=== PATIENT | female | born 1950 | race Two or more races ===

== ENCOUNTER 2018-03-24 01:50 | Emergency (ER) | payer OTHER ==
[~2018-03-24] VITALS: Ht 144.8 cm; Wt 95.3 kg
[~2018-03-24 01:50] MED LIST: ALPR0.5T; BENA10TA9; CITA-36; ESOM40CA39; IBUP100C2
[2018-03-24 02:39] LABS: Basophils # (auto) 0 uL; Eosinophils # (auto) 0.1 uL; Lymphocytes # (auto) 2.2 uL; Monocytes # (auto) 0.6 uL
[2018-03-24 02:41] LABS: Basophils % (auto) 0.6 % (0.0-2.0); Eosinophils % (auto) 1.6 % (0.0-7.0); Hematocrit 34.9 % (36.0-46.0); Hemoglobin 11.2 g/dL (12.2-16.2); Lymphocytes % (auto) 32.4 % (10.0-50.0); Mean Corpuscular Hemoglobin 25.1 pg (28.0-32.0); Mean Corpuscular Hgb Conc. 32.1 g/dL (32.0-36.0); Mean Corpuscular Volume 78.3 fL (80.0-100.0); Neutrophils # (auto) 3.8 uL; Neutrophils % (auto) 56.4 % (37.0-80.0); Platelet Count (auto) 261 10^3/uL (140-450); Red Blood Cells 4.46 10^6/uL (4.0-5.20); Red Cell Distribution Width 14.4 % (11.8-14.3); White Blood Cell 6.8 10^3/uL (4.4-10.8)
[2018-03-24 02:53] LABS: Partial Thromboplastin Time 27.5 sec (23.78-33.04); Prothrombin Time 10.7 sec (9.27-12.13)
[2018-03-24 02:58] LABS: Alanine Aminotransferase 19 U/L (13-56); Albumin 3.3 g/dL (3.4-5.0); Amylase 24 U/L (25-115); Anion Gap 9 (5-15); Aspartate Aminotransferase 14 U/L (15-37); BUN/Creatinine Ratio 12.9; Blood Urea Nitrogen 9 mg/dL (7-18); Calcium 8.3 mg/dL (8.5-10.1); Carbon Dioxide 26 mmol/L (21-32); Chloride 101 mmol/L (98-107); GFR African American 107 mL/min; GFR Non-African American 89 mL/min; Glucose 127 mg/dL (74-106); Lipase 74 U/L (73-393); Potassium 4.1 mmol/L (3.5-5.1); Sodium 136 mmol/L (136-145)
[2018-03-24 03:03] LABS: Alkaline Phosphatase 75 U/L (45-117); Bilirubin, Total 0.5 mg/dL (0.2-1.0); Total Protein 6.8 g/dL (6.4-8.2)
[2018-03-24] MEDS ORDERED: ONDANSETRON HCL 4 MG/2 ML VIAL ONE (03:47)
[2018-03-24 03:54] LABS: Urine Bacteria FEW /hpf (None Seen); Urine Blood Negative /uL (Negative); Urine Specific Gravity 1.004 (1.001-1.035); Urine WBC 30 /hpf (0 - 5)
[2018-03-24] MEDS ORDERED: ONDANSETRON HCL 4 MG/2 ML VIAL IV ONE (04:00)
[2018-03-24] MEDS ORDERED: CIPROFLOXACIN 400MG/200ML 200 ML IV ONE (04:30)
[2018-03-24] MEDS ORDERED: KETOROLAC TROMETH 30 MG/ML 1ML VIAL IV ONE (04:45)
[2018-03-24] MEDS ORDERED: PANTOPRAZOLE 40 MG/10 ML VIAL IV ONE (04:45)
[2018-03-24] MEDS ORDERED: cefTRIAXone 1GM/10ml IVPUSH 10 ML IV ONE (04:45)
[2018-03-24] MEDS ORDERED: IOHEXOL 300 MG/ML 100ML BOTTLE IJ ONE (04:57)
[2018-03-24 05:57] VITALS: BP 134/66
== END 2018-03-24 05:59 | disposition home or self-care (01) ==
LOC: EDBD 01:50 → ER 01:56
DX: N39.0 Urinary tract infection, site not specified (principal); J44.9 Chronic obstructive pulmonary disease, unspecified; E11.9 Type 2 diabetes mellitus without complications; Z79.899 Other long term (current) drug therapy
CPT/HCPCS: 36415; 74177; 80053; 81001; 82150; 83690; 84484; 85025; 85610; 85730; 93005; 96374; 96375; 99285; C9113; J0696; J1885; J2405; Q9967

== ENCOUNTER 2018-09-29 03:46 | Inpatient (IN) | payer OTHER ==
--- NOTE | 2018-09-28 23:55 | NUR ---
REPORT RECEIVED FROM WILBERT WHITE AT [facility]. AWAITING TRANSFER OF PATIENT. PER WILBERT ETA IS 1-2 HOURS.
[~2018-09-29] VITALS: Ht 144.8 cm; Wt 100.0 kg
--- NOTE | 2018-09-29 04:00 | NUR ---
Direct Admit Note MARYMINNIE admitted to Telemetry/MS unit as a direct admit from [facility]. Patient oriented to Chandrika Cisneros, primary RN, unit, room, bed, and unit policies regarding patient care and visiting hours. Patient weighed by bed scale and encouraged to call if they need something. All questions and concerns addressed, patient verbalized understanding. Will page MD to notify of patients arrival and await admit orders.
[2018-09-29 04:15] VITALS: BP 134/71
--- NOTE | 2018-09-29 04:15 | NUR ---
PAGED TO MD [place] FOR ADMISSION ORDERS.
--- NOTE | 2018-09-29 06:00 | NUR ---
PAGE #2 FOR ADMISSION ORDERS. CALL BACK NUMBER PROVIDED TO ANSWERING SERVICE.
--- NOTE | 2018-09-29 06:20 | NUR ---
IV insertion IV access obtained, via clean sterile technique by inserting 22 gauge catheter at Right FA after 1 attempt. IV secured properly. No trauma to site. Patient tolerated well.
--- NOTE | 2018-09-29 06:56 | NUR ---
PAGE #3 FOR ADMISSION ORDERS. CALL BACK NUMBER PROVIDED TO 'S ANSWERING SERVICE [phone] ext [phone].
--- NOTE | 2018-09-29 07:07 | NUR ---
CALL FROM [facility], INFORMED THAT I MUST CALL DR. AMADOR FOR ADMISSION ORDERS. PATIENT IS A DIRECT ADMIT OF DR. TURPIN, DR. AMADOR CORE SUCKER FOR AFTER 0700.
--- NOTE | 2018-09-29 07:10 | NUR ---
CALL TO [facility] ANSWERING SERVICE FOR REGARDING ADMISSION ORDERS. CAGE MAKER INFORMED ME THAT DOCTOR REQUESTS I CALL BACK IN 10 MINUTES.
--- NOTE | 2018-09-29 07:30 | NUR ---
Opening Shift Note REceived report from Chandrika WHITE. Assumed care of patient, awake and alert. No S/S of distress/SOB or pain. Emphasized NPO for LHC today and patient is aware of it. No orders yet, Chandrika WHITE will put in all the orders from dr. Silvestre. Instructed on POC and to call for assist PRN, will continue to monitor for changes Q1hr and PRN.
--- NOTE | 2018-09-29 07:30 | NUR ---
SPOKE TO REGARDING ADMISSION ORDERS, NEW ORDERS RECEIVED. READ BACK AND VERIFIED.
[2018-09-29 08:00] VITALS: BP 126/69
[2018-09-29] MEDS ORDERED: ONDANSETRON HCL 4 MG/2 ML VIAL IV PRN (08:15)
[2018-09-29] MEDS ORDERED: NITROGLYCERIN 0.4 MG SL TAB SL PRN (08:15)
[2018-09-29] MEDS ORDERED: HYDROcodone-ACET 5/325MG TAB PO PRN (08:15)
[2018-09-29 08:45] LABS: Basophils # (auto) 0 uL; Basophils % (auto) 0.4 % (0.0-2.0); Eosinophils # (auto) 0.1 uL; Hemoglobin 10.5 g/dL (12.2-16.2); Lymphocytes # (auto) 1.5 uL; Mean Corpuscular Volume 78.7 fL (80.0-100.0); Monocytes % (auto) 8.4 % (0.0-12.0); Neutrophils # (auto) 6.6 uL; Neutrophils % (auto) 73.6 % (37.0-80.0); White Blood Cell 8.9 10^3/uL (4.4-10.8)
[2018-09-29 08:47] LABS: Eosinophils % (auto) 0.8 % (0.0-7.0); Hematocrit 32.4 % (36.0-46.0); Lymphocytes % (auto) 16.8 % (10.0-50.0); Mean Corpuscular Hemoglobin 25.6 pg (28.0-32.0); Mean Corpuscular Hgb Conc. 32.5 g/dL (32.0-36.0); Monocytes # (auto) 0.7 uL; Nucleated Red Blood Cells % 0.1 %; Platelet Count (auto) 260 10^3/uL (140-450); Red Blood Cells 4.11 10^6/uL (4.0-5.20); Red Cell Distribution Width 15.1 % (11.8-14.3)
[2018-09-29] MEDS: cefTRIAXone 1GM/50ML D5W 50 ML IV SCH (08:54)
--- NOTE | 2018-09-29 09:00 | NUR ---
PATIENT SIGNED CONSENTS. CHG WIPES DONE.
[2018-09-29 09:02] LABS: Albumin 3.4 g/dL (3.4-5.0); Anion Gap 5 (5-15); Blood Urea Nitrogen 6 mg/dL (7-18); Calcium 8.6 mg/dL (8.5-10.1); Carbon Dioxide 28 mmol/L (21-32); Chloride 106 mmol/L (98-107); Glucose 143 mg/dL (74-106); Potassium 4.4 mmol/L (3.5-5.1); Sodium 139 mmol/L (136-145); Triglycerides 120 mg/dL (< 150)
[2018-09-29] MEDS: CLOPIDOGREL BISULFATE 75 MG TAB PO SCH (09:03)
[2018-09-29] MEDS: ASPirin 325 MG TAB PO SCH (09:03)
[2018-09-29] MEDS: GABAPENTIN 300 MG CAP PO SCH ×2 (09:03→22:32)
[2018-09-29] MEDS: CITALOPRAM HYDROBR 20 MG TAB PO SCH (09:04)
[2018-09-29] MEDS: FAMOTIDINE 20 MG TAB PO SCH (09:04)
--- NOTE | 2018-09-29 09:05 | NUR ---
HINDU PATIENT SIGNED REFUSAL FORM TO FOR BLOOD TRANSFUSION. EXPLAINED RISKS AND BENEFITS. WILL CONTINUE CARE.
[2018-09-29 09:07] LABS: Alanine Aminotransferase 16 U/L (13-56); Alkaline Phosphatase 77 U/L (45-117); Aspartate Aminotransferase 15 U/L (15-37); BUN/Creatinine Ratio 9.5; Bilirubin, Total 0.3 mg/dL (0.2-1.0); Cholesterol 132 mg/dL (< 200); GFR African American 121 mL/min; GFR Non-African American 100 mL/min; HDL Cholesterol 67 mg/dL (40-59); LDL Cholesterol 48 mg/dL (< 100); Total Protein 7.1 g/dL (6.4-8.2)
[2018-09-29 09:20] VITALS: BP 126/69
--- NOTE | 2018-09-29 09:35 | NUR ---
Dr. Silvestre at bedside.
[2018-09-29] MEDS ORDERED: DEXTROSE (50%) 50ML SYRG IV PRN (10:00)
[2018-09-29 10:07] LABS: Cholesterol 126 mg/dL (< 200); Triglycerides 123 mg/dL (< 150)
[2018-09-29 10:09] LABS: HDL Cholesterol 67 mg/dL (40-59); LDL Cholesterol 48 mg/dL (< 100)
--- NOTE | 2018-09-29 10:27 | NUR ---
OBTAINED URINE SAMPLE, SENT TO LAB.
[2018-09-29 11:03] LABS: Urine Bacteria NONE SEEN /hpf (None Seen); Urine Blood Negative /uL (Negative); Urine Mucus FEW (None Seen); Urine Specific Gravity 1.013 (1.001-1.035); Urine WBC 1 /hpf (0 - 5)
[2018-09-29] MEDS ORDERED: ALPR-229 PO (11:36)
[2018-09-29] MEDS ORDERED: ESCI20TA PO (11:36)
[2018-09-29] MEDS ORDERED: PANT1INJ3 PO (11:36)
[2018-09-29] MEDS ORDERED: ESCI20TA51 PO (11:36)
[2018-09-29] MEDS ORDERED: SIMV-13 PO (11:36)
[2018-09-29] MEDS ORDERED: BENZ1TAB2 PO (11:36)
[2018-09-29] MEDS ORDERED: RANI1TAB6 PO (11:36)
[2018-09-29] MEDS ORDERED: ZIPR80CA8 PO (11:36)
[2018-09-29] MEDS ORDERED: GABA300C10 PO (11:36)
[2018-09-29] MEDS ORDERED: INSU100I4 SC (11:36)
[2018-09-29] MEDS ORDERED: METF-370 PO (11:36)
[2018-09-29] MEDS ORDERED: HYDR-4798 PO (11:36)
[2018-09-29] MEDS ORDERED: DONE10TA40 PO (11:36)
[2018-09-29] MEDS ORDERED: CLOT1CRE13 TOP (11:36)
[2018-09-29] MEDS ORDERED: DIPH25CA6 PO (11:36)
[2018-09-29] MEDS ORDERED: PROP60CA34 PO (11:36)
[2018-09-29] MEDS: ACCU-CHEK COMFORT CURVE STRIP VI SCH ×2 (11:51→17:18)
[2018-09-29] MEDS: InsuLIN REG 1unit/0.01ml Soln (100units/ml) SC SCH ×2 (11:52→17:18)
[2018-09-29 12:05] LABS: INR 0.99 (0.9-1.15); Partial Thromboplastin Time 25.8 sec (23.78-33.04); Prothrombin Time 10.6 sec (9.27-12.13)
--- NOTE | 2018-09-29 12:58 | NUR ---
ASSISTED PATIENT BY BED TO [employer] BY EVERTON WHITE.
[2018-09-29 13:00] VITALS: BP 150/52
[2018-09-29] MEDS ORDERED: LIDOCAINE 2%HCL (LOCAL ANESTH.) INJ 20ML MDV ONE (13:16)
[2018-09-29] MEDS ORDERED: IOHEXOL 350 MG/ML 100ML IJ ONE (13:16)
[2018-09-29] MEDS ORDERED: ANGIOMAX 250 MG VIAL IV ONE (13:23)
[2018-09-29] MEDS ORDERED: SODIUM CHL 0.9% 0 ML ONE (13:23)
[2018-09-29] MEDS ORDERED: fentaNYL CITRATE 100 MCG/2 ML VL ONE (13:23)
[2018-09-29] MEDS ORDERED: MIDAZOLAM HCL 1MG/1ML-2 ML VIAL ONE (13:23)
[2018-09-29] MEDS: BENZTROPINE MESY 0.5 MG TAB PO SCH ×2 (13:30→22:32)
--- NOTE | 2018-09-29 14:45 | NUR ---
PATIENT IS BACK TO ROOM, NOTED RIGHT GROIN DRY & INTACT DRESSING. INSTRUCTED TO BE FLAT ON BED UNTIL 1600. PATIENT VERBALIZED UNDERSTANDING. WILL CONTINUE CARE.
[2018-09-29 17:16] VITALS: BP 137/56
--- NOTE | 2018-09-29 20:10 | NUR ---
OPENING NOTE PATIENT IS AWAKE AND ALERT X4, AMBULATING INDEPENDENTLY. DRESSING TO RIGHT GROIN IS C/D/I. NO S/S OF BLEEDING OR HEMATOMA FORMATION NOTED AT SITE. PULSES INTACT TO BILATERAL LOWER EXTREMITIES. PATIENT DENIES PAIN AT SITE.
[2018-09-29 22:00] VITALS: BP 141/86
[2018-09-29] MEDS ORDERED: ATORVASTATIN 20 MG TAB PO SCH (22:00)
[2018-09-29] MEDS ORDERED: DONEPEZIL HYDROCHLORIDE 5 MG TAB PO SCH (22:00)
[2018-09-29] MEDS ORDERED: SENNA 8.6 MG TAB PO SCH (22:00)
[2018-09-29] MEDS: SODIUM CHLOR 0.9% PF (SALINE LOCK) 10ML VIAL/SYR IV SCH (22:32)
--- NOTE | 2018-09-29 22:32 | NUR ---
DRESSING TO RIGHT GROIN REMAINS C/D/I. NO BLEEDING/BRUISING NOTED AT SITE. PULSES INTACT TO BLE. PATIENT DENIES PAIN AT SITE.
[2018-09-30] MEDS: ACCU-CHEK COMFORT CURVE STRIP VI SCH ×3 (00:37→11:59)
[2018-09-30] MEDS: InsuLIN REG 1unit/0.01ml Soln (100units/ml) SC SCH ×3 (00:41→12:01)
[2018-09-30 05:49] VITALS: BP 131/66
[2018-09-30] MEDS: BENZTROPINE MESY 0.5 MG TAB PO SCH (06:33)
[2018-09-30] MEDS: SODIUM CHLOR 0.9% PF (SALINE LOCK) 10ML VIAL/SYR IV SCH (06:34)
--- NOTE | 2018-09-30 07:00 | NUR ---
Opening Shift Note Assumed care of patient, awake and alert. No S/S of distress/SOB or pain. Instructed on POC and to call for assist PRN, will continue to monitor for changes Q1hr and PRN.
[2018-09-30 07:30] VITALS: BP 120/52
[2018-09-30] MEDS ORDERED: ASPI-266 PO (11:06)
[2018-09-30] MEDS ORDERED: CIPR-173 PO (11:41)
[2018-09-30] MEDS: ASPirin 325 MG TAB PO SCH (11:58)
[2018-09-30] MEDS: cefTRIAXone 1GM/50ML D5W 50 ML IV SCH (11:58)
[2018-09-30] MEDS: CLOPIDOGREL BISULFATE 75 MG TAB PO SCH (11:59)
[2018-09-30] MEDS: CITALOPRAM HYDROBR 20 MG TAB PO SCH (11:59)
[2018-09-30] MEDS: FAMOTIDINE 20 MG TAB PO SCH (11:59)
[2018-09-30] MEDS: GABAPENTIN 300 MG CAP PO SCH (12:00)
--- NOTE | 2018-09-30 13:30 | NUR ---
Discharge instructions given as ordered. Encourage to follow up with PMD as instructed. All questions and concerns addressed. Patient verbalized understanding. Medication reconciliation form completed and copy given to patient. Home medications held in Pharmacy returned to patient. IV removed with catheter intact, pressure dressing applied. Telemetry unit returned to ICU. Patient taken to vehicle via wheelchair with all personal belongings, accompanied by staff and family member. No distress noted at time of departure.
== END 2018-09-30 13:30 | disposition home or self-care (01) | DRG 287 ==
LOC: WEST WING 03:46 → TELE-WESTW 06:10
PROVIDERS: ADMIT Internal Medicine Cardiovascular Disease; ATTEND Internal Medicine
PROC: 4A023N7 Measurement of Cardiac Sampling and Pressure, Left Heart, Percutaneous Approach (ICD-10-PCS; principal; 2018-09-29)
PROC: B2111ZZ Fluoroscopy of Multiple Coronary Arteries using Low Osmolar Contrast (ICD-10-PCS; 2018-09-29)
PROC: B2161ZZ Fluoroscopy of Right and Left Heart using Low Osmolar Contrast (ICD-10-PCS; 2018-09-29)
DX: R07.9 Chest pain, unspecified (principal); N39.0 Urinary tract infection, site not specified; E11.9 Type 2 diabetes mellitus without complications; I11.9 Hypertensive heart disease without heart failure; E66.01 Morbid (severe) obesity due to excess calories; Z82.49 Family history of ischemic heart disease and other diseases of the circulatory system; Z83.3 Family history of diabetes mellitus; Z90.710 Acquired absence of both cervix and uterus; Z68.23 Body mass index [BMI] 23.0-23.9, adult
CPT/HCPCS: 36415; 71045; 80053; 80061; 81001; 82962; 83036; 84484; 85025; 85610; 85730; 87081; 93005; 99152; A6257; G0378; J0696; J1815; J2250

== ENCOUNTER 2018-11-22 09:51 | Emergency (ER) | payer OTHER ==
[~2018-11-22] VITALS: Ht 144.8 cm; Wt 95.7 kg
[~2018-11-22 09:51] MED LIST changes: +ALPR-229 PO; -ALPR0.5T; +ASPI-266 PO; -BENA10TA9; +BENZ1TAB2 PO; +CIPR-173 PO; -CITA-36; +CLOT1CRE13 TOP; +DIPH25CA6 PO; +DONE10TA40 PO; +ESCI20TA51 PO; -ESOM40CA39; +GABA300C10 PO; +HYDR-4798 PO; -IBUP100C2; +INSU100I4 SC; +METF-370 PO; +PANT1INJ3 PO; +PROP60CA34 PO; +RANI1TAB6 PO; +SIMV-13 PO; +ZIPR80CA8 PO
[2018-11-22 10:58] LABS: Basophils # (auto) 0 uL; Eosinophils # (auto) 0.1 uL; Lymphocytes # (auto) 2.3 uL; Monocytes # (auto) 0.7 uL; Neutrophils # (auto) 7.2 uL; Red Blood Cells 4.66 10^6/uL (4.0-5.20)
[2018-11-22 10:59] LABS: Basophils % (auto) 0.5 % (0.0-2.0); Eosinophils % (auto) 0.6 % (0.0-7.0); Hematocrit 36.5 % (36.0-46.0); Hemoglobin 11.7 g/dL (12.2-16.2); Lymphocytes % (auto) 22.5 % (10.0-50.0); Mean Corpuscular Hemoglobin 25.1 pg (28.0-32.0); Mean Corpuscular Hgb Conc. 32.1 g/dL (32.0-36.0); Mean Corpuscular Volume 78.2 fL (80.0-100.0); Monocytes % (auto) 6.8 % (0.0-12.0); Neutrophils % (auto) 69.6 % (37.0-80.0); Platelet Count (auto) 287 10^3/uL (140-450); Red Cell Distribution Width 15.7 % (11.8-14.3); White Blood Cell 10.3 10^3/uL (4.4-10.8)
[2018-11-22] MEDS ORDERED: ASPirin 81 mg TAB PO ONE (11:00)
[2018-11-22] MEDS ORDERED: NITROGLYCERIN 0.4 MG SL TAB SL ONE (11:00)
[2018-11-22 11:10] LABS: Albumin 3.8 g/dL (3.4-5.0); Anion Gap 8 (5-15); Blood Urea Nitrogen 8 mg/dL (7-18); Calcium 8.9 mg/dL (8.5-10.1); Carbon Dioxide 26 mmol/L (21-32); Chloride 106 mmol/L (98-107); Glucose 144 mg/dL (74-106); Potassium 4.2 mmol/L (3.5-5.1); Sodium 140 mmol/L (136-145)
[2018-11-22 11:17] LABS: Alanine Aminotransferase 14 U/L (13-56); Alkaline Phosphatase 90 U/L (45-117); Aspartate Aminotransferase 12 U/L (15-37); BUN/Creatinine Ratio 10.8; Bilirubin, Total 0.4 mg/dL (0.2-1.0); GFR African American 100 mL/min; GFR Non-African American 83 mL/min; Total Protein 7.4 g/dL (6.4-8.2)
[2018-11-22 11:20] LABS: Partial Thromboplastin Time 24.3 sec (23.78-33.04); Prothrombin Time 10.7 sec (9.27-12.13)
[2018-11-22] MEDS ORDERED: PANTOPRAZOLE 40 MG TAB PO ONE ×2 (16:45→16:47)
[2018-11-22 18:19] VITALS: BP 150/72
== END 2018-11-22 18:45 | disposition home or self-care (01) ==
LOC: ER 09:51 → EDBD 09:51 → ER 18:45
DX: I24.9 Acute ischemic heart disease, unspecified (principal); R51 Headache; I10 Essential (primary) hypertension; J44.9 Chronic obstructive pulmonary disease, unspecified; E11.9 Type 2 diabetes mellitus without complications; Z87.440 Personal history of urinary (tract) infections
CPT/HCPCS: 36415; 71045; 80053; 83880; 84484; 85025; 85610; 85730; 93005

== ENCOUNTER 2019-09-13 15:11 | Emergency (ER) | payer OTHER ==
[~2019-09-13] VITALS: Ht 144.8 cm; Wt 85.3 kg
[~2019-09-13 15:11] MED LIST changes: -ALPR-229 PO; +ALPR2TAB6 PO; +RANI-435 PO; -RANI1TAB6 PO
[2019-09-13 18:13] VITALS: BP 113/49
== END 2019-09-13 18:19 | disposition home or self-care (01) ==
LOC: ER 15:37
DX: K02.9 Dental caries, unspecified (principal); K29.70 Gastritis, unspecified, without bleeding; R42 Dizziness and giddiness; R51 Headache; J44.9 Chronic obstructive pulmonary disease, unspecified; E11.9 Type 2 diabetes mellitus without complications; I10 Essential (primary) hypertension; Z79.2 Long term (current) use of antibiotics; Z79.82 Long term (current) use of aspirin; Z79.4 Long term (current) use of insulin; Z79.899 Other long term (current) drug therapy
CPT/HCPCS: 70450; 93005

== ENCOUNTER → 2020-08-31 | Emergency (ER) | payer OTHER ==
[~2020-08-31] VITALS: Ht 144.8 cm; Wt 90.7 kg
[~2020-08-31] MED LIST changes: -ALPR2TAB6 PO; -CLOT1CRE13 TOP; -DIPH25CA6 PO; -PROP60CA34 PO; -RANI-435 PO; -ZIPR80CA8 PO; +cefTRIAXone SOD 1,000 MG VL IM ONE
[2020-08-31 17:15] VITALS: BP 149/79
== END | disposition home or self-care (01) ==
LOC: ER 15:38
DX: J03.90 Acute tonsillitis, unspecified (principal); H66.93 Otitis media, unspecified, bilateral; J40 Bronchitis, not specified as acute or chronic; E11.9 Type 2 diabetes mellitus without complications; E78.5 Hyperlipidemia, unspecified; I10 Essential (primary) hypertension; Z20.828 Contact with and (suspected) exposure to other viral communicable diseases
CPT/HCPCS: 36415; 71045; 87426; 96372; 99284; C9803; J0696; U0003

== ENCOUNTER → 2020-09-13 | Outpatient (CLI) | payer OTHER ==
[~2020-09-13] MED LIST changes: +ALPR1TAB2 PO; -ASPI-266 PO; +ASPI1TAB91 PO; +BACL10TA PO; -DONE10TA40 PO; +DONE1TAB88 PO; +ESCI-34 PO; -ESCI20TA51 PO; +LISI-275 PO; +LISI2.5T47 PO; +PERCOT PO; -cefTRIAXone SOD 1,000 MG VL IM ONE
[2020-09-13 09:22] LABS: Basophils # (auto) 0 10 ^3/uL (0-0.2); Basophils % (auto) 0.4 % (0.0-2.0); Eosinophils # (auto) 0.1 10 ^3/uL (0-0.8); Eosinophils % (auto) 1.8 % (0.0-7.0); Hematocrit 34.5 % (36.0-46.0); Hemoglobin 11.4 g/dL (12.2-16.2); Lymphocytes # (auto) 2.3 10 ^3/uL (0.4-5.4); Lymphocytes % (auto) 31.7 % (10.0-50.0); Mean Corpuscular Hemoglobin 27.5 pg (28.0-32.0); Mean Corpuscular Hgb Conc. 33.1 g/dL (32.0-36.0); Mean Corpuscular Volume 83.1 fL (80.0-100.0); Monocytes # (auto) 0.9 10 ^3/uL (0-1.3); Monocytes % (auto) 12.2 % (0.0-12.0); Neutrophils # (auto) 3.8 10 ^3/uL (1.6-8.6); Neutrophils % (auto) 53.9 % (37.0-80.0); Red Blood Cells 4.15 10^6/uL (4.0-5.20); Red Cell Distribution Width 13.8 % (11.8-14.3); White Blood Cell 7.1 10^3/uL (4.4-10.8)
[2020-09-13 09:27] LABS: Albumin 3.3 g/dL (3.4-5.0); Calcium 8.7 mg/dL (8.5-10.1); Potassium 4.8 mmol/L (3.5-5.1)
[2020-09-13 09:34] LABS: BUN/Creatinine Ratio 20.4; Bilirubin, Total 0.4 mg/dL (0.2-1.0); Total Protein 7.1 g/dL (6.4-8.2)
== END | disposition home or self-care (01) ==
LOC: LAB 08:33
PROVIDERS: ATTEND Internal Medicine
DX: E11.9 Type 2 diabetes mellitus without complications (principal); D64.9 Anemia, unspecified; E78.5 Hyperlipidemia, unspecified; Z12.11 Encounter for screening for malignant neoplasm of colon
CPT/HCPCS: 36415; 80053; 80061; 82043; 82270; 83036; 85025

== ENCOUNTER 2020-10-02 13:59 | Emergency (ER) | payer OTHER ==
[~2020-10-02] VITALS: Ht 147.3 cm; Wt 90.7 kg
[~2020-10-02 13:59] MED LIST changes: -ALPR1TAB2 PO; -BACL10TA PO; -LISI-275 PO; -LISI2.5T47 PO; -PERCOT PO
[2020-10-02] MEDS ORDERED: ASPirin 81 mg TAB PO ONE (14:30)
[2020-10-02 14:46] LABS: Urine WBC None Seen /hpf (0 - 5)
[2020-10-02 15:03] LABS: Urine Bacteria NONE SEEN /hpf (None Seen); Urine Blood Negative /uL (Negative); Urine Specific Gravity 1.008 (1.001-1.035)
[2020-10-02 15:28] LABS: Basophils # (auto) 0 10 ^3/uL (0-0.2); Basophils % (auto) 0.4 % (0.0-2.0); Eosinophils # (auto) 0.1 10 ^3/uL (0-0.8); Eosinophils % (auto) 1.3 % (0.0-7.0); Hematocrit 35.4 % (36.0-46.0); Hemoglobin 11.7 g/dL (12.2-16.2); Lymphocytes # (auto) 2.4 10 ^3/uL (0.4-5.4); Lymphocytes % (auto) 28.6 % (10.0-50.0); Mean Corpuscular Hemoglobin 27.7 pg (28.0-32.0); Mean Corpuscular Hgb Conc. 33.1 g/dL (32.0-36.0); Mean Corpuscular Volume 83.8 fL (80.0-100.0); Monocytes # (auto) 0.8 10 ^3/uL (0-1.3); Monocytes % (auto) 9.7 % (0.0-12.0); Nucleated Red Blood Cells % 0.1 %; Red Blood Cells 4.22 10^6/uL (4.0-5.20); Red Cell Distribution Width 13.9 % (11.8-14.3); White Blood Cell 8.3 10^3/uL (4.4-10.8)
[2020-10-02 15:53] LABS: Alanine Aminotransferase 16 U/L (13-56); Albumin 3.6 g/dL (3.4-5.0); Anion Gap 11 (5-15); Aspartate Aminotransferase 16 U/L (15-37); BUN/Creatinine Ratio 14.7; Blood Urea Nitrogen 11 mg/dL (7-18); Calcium 9.2 mg/dL (8.5-10.1); Carbon Dioxide 24 mmol/L (21-32); Chloride 104 mmol/L (98-107); GFR African American 98 mL/min; GFR Non-African American 81 mL/min; Glucose 122 mg/dL (74-106); Sodium 139 mmol/L (136-145)
[2020-10-02 15:57] LABS: Alkaline Phosphatase 95 U/L (45-117); Bilirubin, Total 0.3 mg/dL (0.2-1.0)
[2020-10-02 17:04] VITALS: BP 150/54
[2020-10-02] MEDS ORDERED: HYDROcodone-ACET 10/325MG TAB PO ONE (17:15)
[2021-03-05] MEDS ORDERED: GABA300C10 PO (13:35)
[2021-03-06] MEDS ORDERED: LISI-275 PO (18:41)
== END 2020-10-02 17:17 | disposition home or self-care (01) ==
LOC: ER 13:59
DX: R07.89 Other chest pain (principal); E11.9 Type 2 diabetes mellitus without complications; I10 Essential (primary) hypertension; E78.5 Hyperlipidemia, unspecified; Z79.82 Long term (current) use of aspirin; Z79.899 Other long term (current) drug therapy
CPT/HCPCS: 36415; 71045; 80053; 81001; 83880; 84484; 85025; 93005

== ENCOUNTER → 2020-10-18 | Outpatient (CLI) | payer OTHER ==
[~2020-10-18] MED LIST changes: +ASPI-266 PO; -ASPI1TAB91 PO
== END | disposition home or self-care (01) ==
LOC: LAB 13:49
PROVIDERS: ATTEND Internal Medicine
DX: E11.9 Type 2 diabetes mellitus without complications (principal); D64.9 Anemia, unspecified; G89.4 Chronic pain syndrome
CPT/HCPCS: 36415; 85652; 86038; 86141; 86431

== ENCOUNTER → 2020-11-15 | Outpatient (CLI) | payer OTHER | END | disposition home or self-care (01) | LOC: LAB 14:37 | PROVIDERS: ATTEND Nurse Practitioner Family | DX: N39.0 Urinary tract infection, site not specified (principal); R30.0 Dysuria | CPT/HCPCS: 87086 ==

== ENCOUNTER → 2020-11-15 | Outpatient (CLI) | payer OTHER ==
[2020-11-16 08:06] LABS: RPR Non Reactive (Non Reactive)
== END | disposition home or self-care (01) ==
LOC: LAB 13:53
PROVIDERS: ATTEND Nurse Practitioner Family
DX: Z11.3 Encounter for screening for infections with a predominantly sexual mode of transmission (principal); R59.0 Localized enlarged lymph nodes
CPT/HCPCS: 86592; 86703

== ENCOUNTER → 2020-12-08 | Outpatient (CLI) | payer OTHER ==
[2020-12-08 16:03] LABS: Alanine Aminotransferase 19 U/L (13-56); Albumin 3.4 g/dL (3.4-5.0); Aspartate Aminotransferase 17 U/L (15-37); Bilirubin, Direct < 0.1 mg/dL (0-0.2)
[2020-12-08 16:05] LABS: Alkaline Phosphatase 76 U/L (45-117); Bilirubin, Total 0.3 mg/dL (0.2-1.0); Total Protein 6.7 g/dL (6.4-8.2)
== END | disposition home or self-care (01) ==
LOC: LAB 14:11
PROVIDERS: ATTEND Podiatrist
DX: B35.1 Tinea unguium (principal)
CPT/HCPCS: 36415; 80076

== ENCOUNTER 2020-12-15 15:32 | Emergency (ER) | payer OTHER ==
[~2020-12-15] VITALS: Ht 147.3 cm; Wt 88.5 kg
[~2020-12-15 15:32] MED LIST changes: -ASPI-266 PO; +ASPI1TAB91 PO
[2020-12-15 18:53] LABS: Basophils # (auto) 0 10 ^3/uL (0-0.2); Eosinophils # (auto) 0.2 10 ^3/uL (0-0.8); Hemoglobin 12.5 g/dL (12.2-16.2); Lymphocytes # (auto) 3.2 10 ^3/uL (0.4-5.4); Monocytes % (auto) 7.9 % (0.0-12.0); Red Cell Distribution Width 13.6 % (11.8-14.3)
[2020-12-15 18:56] LABS: Basophils % (auto) 0.3 % (0.0-2.0); Eosinophils % (auto) 2.5 % (0.0-7.0); Hematocrit 38.3 % (36.0-46.0); Mean Corpuscular Hemoglobin 26.3 pg (28.0-32.0); Mean Corpuscular Hgb Conc. 32.6 g/dL (32.0-36.0); Mean Corpuscular Volume 80.7 fL (80.0-100.0); Monocytes # (auto) 0.5 10 ^3/uL (0-1.3); Neutrophils % (auto) 43.3 % (37.0-80.0); Platelet Count (auto) 288 10^3/uL (140-450); Red Blood Cells 4.75 10^6/uL (4.0-5.20)
[2020-12-15 19:29] LABS: Anion Gap 7 (5-15); Blood Urea Nitrogen 17 mg/dL (7-18); Calcium 9.2 mg/dL (8.5-10.1); Carbon Dioxide 25 mmol/L (21-32); Chloride 103 mmol/L (98-107); Glucose 118 mg/dL (74-106); Potassium 4.6 mmol/L (3.5-5.1); Sodium 135 mmol/L (136-145)
[2020-12-15 19:33] LABS: Alanine Aminotransferase 20 U/L (13-56); Alkaline Phosphatase 88 U/L (45-117); Aspartate Aminotransferase 21 U/L (15-37); BUN/Creatinine Ratio 23.3; Bilirubin, Total 0.4 mg/dL (0.2-1.0); GFR African American 101 mL/min; GFR Non-African American 84 mL/min; Total Protein 7.6 g/dL (6.4-8.2)
[2020-12-15 19:53] VITALS: BP 132/74
== END 2020-12-15 19:48 | disposition home or self-care (01) ==
LOC: ER 15:32
DX: M54.42 Lumbago with sciatica, left side (principal); M54.41 Lumbago with sciatica, right side; I44.7 Left bundle-branch block, unspecified; I10 Essential (primary) hypertension; E11.9 Type 2 diabetes mellitus without complications; E78.00 Pure hypercholesterolemia, unspecified; Z79.82 Long term (current) use of aspirin; Z79.4 Long term (current) use of insulin; Z79.899 Other long term (current) drug therapy; Z90.710 Acquired absence of both cervix and uterus
CPT/HCPCS: 36415; 71045; 72131; 80053; 84484; 85025; 93005

== ENCOUNTER 2020-12-25 16:27 | Observation (INO) | payer OTHER ==
[~2020-12-25] VITALS: Ht 149.9 cm; Wt 181.8 kg
[2020-12-25] MEDS ORDERED: ASPirin 81 mg TAB PO ONE (16:45)
[2020-12-25] MEDS ORDERED: LORazepam 2MG/ML-1ML VIAL IV ONE (17:30)
[2020-12-25] MEDS ORDERED: MORPHINE SULF INJ 2 MG/ML SYRINGE 1ML IV PRN (18:00)
[2020-12-25] MEDS ORDERED: NITROGLYCERIN 0.4 MG SL TAB SL PRN (18:00)
[2020-12-25 18:24] LABS: Basophils # (auto) 0 10 ^3/uL (0-0.2); Basophils % (auto) 0.2 % (0.0-2.0); Eosinophils # (auto) 0 10 ^3/uL (0-0.8); Hematocrit 35.4 % (36.0-46.0); Hemoglobin 11.6 g/dL (12.2-16.2); Lymphocytes # (auto) 2.5 10 ^3/uL (0.4-5.4); Mean Corpuscular Hemoglobin 26.2 pg (28.0-32.0); Monocytes # (auto) 0.6 10 ^3/uL (0-1.3)
[2020-12-25 18:26] LABS: Eosinophils % (auto) 0.3 % (0.0-7.0); Lymphocytes % (auto) 31.6 % (10.0-50.0); Mean Corpuscular Hgb Conc. 32.7 g/dL (32.0-36.0); Monocytes % (auto) 7.2 % (0.0-12.0); Neutrophils # (auto) 4.9 10 ^3/uL (1.6-8.6); Neutrophils % (auto) 60.7 % (37.0-80.0); Platelet Count (auto) 282 10^3/uL (140-450); Red Blood Cells 4.43 10^6/uL (4.0-5.20)
[2020-12-25 18:35] LABS: Alanine Aminotransferase 18 U/L (13-56); Albumin 3.8 g/dL (3.4-5.0); Anion Gap 9 (5-15); Aspartate Aminotransferase 12 U/L (15-37); BUN/Creatinine Ratio 10.3; Blood Urea Nitrogen 6 mg/dL (7-18); Calcium 8.8 mg/dL (8.5-10.1); Carbon Dioxide 23 mmol/L (21-32); Chloride 101 mmol/L (98-107); GFR African American 132 mL/min; GFR Non-African American 109 mL/min; Glucose 110 mg/dL (74-106); Sodium 133 mmol/L (136-145)
[2020-12-25 18:40] LABS: Alkaline Phosphatase 75 U/L (45-117); Bilirubin, Total 0.5 mg/dL (0.2-1.0)
[2020-12-25 18:42] LABS: INR 1.07 (0.9-1.15); Partial Thromboplastin Time 26.7 sec (23.0-31.2)
[2020-12-25 20:27] LABS: Urine Bacteria NONE SEEN /hpf (None Seen); Urine Blood Negative /uL (Negative); Urine Specific Gravity 1.003 (1.001-1.035); Urine WBC 1 /hpf (0 - 5)
[2020-12-25 23:29] VITALS: BP 136/69
[2020-12-26] MEDS ORDERED: LISI2.5T47 PO (01:01)
[2020-12-26] MEDS ORDERED: PERCOT PO (01:02)
[2020-12-26] MEDS ORDERED: ALPR1TAB2 PO (01:02)
[2020-12-26] MEDS ORDERED: BACL10TA PO (01:02)
[2020-12-26 01:24] VITALS: BP 136/69
[2020-12-26 05:17] VITALS: BP 125/65
[2020-12-26] MEDS ORDERED: LORazepam 0.5 MG TAB PO PRN (06:15)
[2020-12-26] MEDS ORDERED: ALUM & MAG HYDROX-SIMETH LIQ(MAALOX) 30 ML PO PRN (06:15)
[2020-12-26] MEDS ORDERED: HYDROcodone-ACET 5/325MG TAB PO PRN ×2 (06:15→07:00)
[2020-12-26] MEDS ORDERED: BACLOFEN 10 MG TAB PO PRN (06:15)
[2020-12-26] MEDS ORDERED: NITROGLYCERIN 0.4 MG SL TAB SL PRN (06:15)
[2020-12-26] MEDS ORDERED: ACETAMINOPHEN 325 MG TAB PO PRN (06:15)
[2020-12-26] MEDS ORDERED: SODIUM CHLORIDE 0.9% 1,000 ML IV SCH (06:15)
[2020-12-26] MEDS ORDERED: MORPHINE SULF INJ 2 MG/ML SYRINGE 1ML IV PRN ×2 (06:15)
[2020-12-26] MEDS ORDERED: DEXTROSE (50%) 50ML SYRG IV PRN (06:15)
[2020-12-26] MEDS ORDERED: DOCUSATE SOD 100 MG CAP PO PRN (06:15)
[2020-12-26] MEDS ORDERED: ONDANSETRON HCL 4 MG/2 ML VIAL IV PRN (06:15)
[2020-12-26] MEDS: ACCU-CHEK COMFORT CURVE STRIP VI SCH ×2 (06:36→11:27)
[2020-12-26] MEDS: InsuLIN REG 1unit/0.01ml Soln (100units/ml) SC SCH ×2 (06:40→11:26)
[2020-12-26 08:15] LABS: Cholesterol 149 mg/dL (< 200); HDL Cholesterol 78 mg/dL (40-59); LDL Cholesterol 56 mg/dL (< 100); Triglycerides 86 mg/dL (< 150)
[2020-12-26 08:33] VITALS: BP 133/85
[2020-12-26 09:19] LABS: Urine Bacteria NONE SEEN /hpf (None Seen); Urine Blood Negative /uL (Negative); Urine WBC 30 /hpf (0 - 5)
[2020-12-26 09:36] LABS: Alcohol, Urine < 3.0 mg/dL (0-10); Amphetamine Screen, Urine NEGATIVE (NEGATIVE); Barbiturate Scree,Urine NEGATIVE (NEGATIVE); Benzodiazephine Screen, Urine NEGATIVE (NEGATIVE); Cannabinoid Screen, Urine NEGATIVE (NEGATIVE); Cocaine Screen, Urine NEGATIVE (NEGATIVE); Opiate Scree,Urine NEGATIVE (NEGATIVE); Phencyclidine Screen, Urine NEGATIVE (NEGATIVE)
[2020-12-26] MEDS ORDERED: GABAPENTIN 300 MG CAP PO SCH (10:00)
[2020-12-26] MEDS ORDERED: ASPirin-EC 81 mg tab PO SCH (10:00)
[2020-12-26] MEDS ORDERED: PANTOPRAZOLE 40 MG/10 ML VIAL INJ IV SCH (10:00)
[2020-12-26] MEDS ORDERED: ENOXAPARIN SOD 40 MG/0.4 ML SYRINGE SC SCH (10:00)
[2020-12-26] MEDS ORDERED: CITALOPRAM HYDROBR 20 MG TAB PO SCH (10:00)
[2020-12-26] MEDS ORDERED: LISINOPRIL 5 MG TAB PO SCH (10:00)
[2020-12-26 12:04] VITALS: BP 133/85
[2020-12-26 12:32] VITALS: BP 146/70
[2020-12-26] MEDS ORDERED: BENZTROPINE MESY 0.5 MG TAB PO SCH (14:00)
[2020-12-26] MEDS ORDERED: ATORVASTATIN 20 MG TAB PO SCH (22:00)
[2020-12-26] MEDS ORDERED: DONEPEZIL HYDROCHLORIDE 5 MG TAB PO SCH (22:00)
[2020-12-26] MEDS ORDERED: InsuLIN REG 1unit/0.01ml Soln (100units/ml) SC SCH (22:00)
== END 2020-12-26 15:00 | disposition home or self-care (01) ==
LOC: EDBD 16:27 → ER 16:27 → EDUNIT# 16:27 → TELE 17:50 → INTOOBSV 17:50 → TELE-EAST 22:20
PROVIDERS: ADMIT Hospitalist; ATTEND Internal Medicine
DX: R07.89 Other chest pain (principal); Z20.822 Contact with and (suspected) exposure to COVID-19; E11.65 Type 2 diabetes mellitus with hyperglycemia; I11.9 Hypertensive heart disease without heart failure; I44.7 Left bundle-branch block, unspecified; E78.5 Hyperlipidemia, unspecified; E66.01 Morbid (severe) obesity due to excess calories; F03.90 Unspecified dementia, unspecified severity, without behavioral disturbance, psychotic disturbance, mood disturbance, and anxiety; F41.8 Other specified anxiety disorders; E78.00 Pure hypercholesterolemia, unspecified; Z79.4 Long term (current) use of insulin; Z79.899 Other long term (current) drug therapy; Z90.710 Acquired absence of both cervix and uterus
CPT/HCPCS: 36415; 71045; 80053; 80061; 80307; 81001; 82962; 83036; 83880; 84484; 85025; 85610; 85730; 87040; 87081; 87086; 87426; 93005; 93306; 96361; 96372; 96374; 96375; 99285; C9113; G0378; J1650; J1815; J2060; J2270; J2405; J7030

== ENCOUNTER → 2021-01-17 | Outpatient (CLI) | payer OTHER ==
[~2021-01-17] MED LIST changes: +ALPR1TAB2 PO; +BACL10TA PO; -CIPR-173 PO; +LISI2.5T47 PO; +PERCOT PO
[2021-01-17 14:07] LABS: Basophils # (auto) 0 10 ^3/uL (0-0.2); Basophils % (auto) 0.3 % (0.0-2.0); Eosinophils # (auto) 0.1 10 ^3/uL (0-0.8); Mean Corpuscular Hemoglobin 26.5 pg (28.0-32.0); Mean Corpuscular Hgb Conc. 32.3 g/dL (32.0-36.0); Monocytes # (auto) 0.5 10 ^3/uL (0-1.3); Neutrophils # (auto) 4.5 10 ^3/uL (1.6-8.6); Nucleated Red Blood Cells % 0.1 %
[2021-01-17 14:08] LABS: Eosinophils % (auto) 1.5 % (0.0-7.0); Hemoglobin 11.9 g/dL (12.2-16.2); Lymphocytes # (auto) 2.4 10 ^3/uL (0.4-5.4); Lymphocytes % (auto) 31.5 % (10.0-50.0); Mean Corpuscular Volume 82.2 fL (80.0-100.0); Monocytes % (auto) 7.3 % (0.0-12.0); Neutrophils % (auto) 59.4 % (37.0-80.0); Platelet Count (auto) 272 10^3/uL (140-450); Red Cell Distribution Width 14.7 % (11.8-14.3); White Blood Cell 7.5 10^3/uL (4.4-10.8)
[2021-01-17 14:25] LABS: Urine Bacteria FEW /hpf (None Seen); Urine Blood Negative /uL (Negative); Urine Specific Gravity 1.007 (1.001-1.035); Urine WBC 11 /hpf (0 - 5)
[2021-01-17 15:27] LABS: Albumin 3.6 g/dL (3.4-5.0)
[2021-01-17 15:32] LABS: Bilirubin, Direct 0.1 mg/dL (0-0.2); Bilirubin, Total 0.3 mg/dL (0.2-1.0); Total Protein 7.1 g/dL (6.4-8.2)
[2021-01-17 15:40] LABS: % Iron Saturation 8.3 % (15-50)
== END | disposition home or self-care (01) ==
LOC: LAB 13:27
PROVIDERS: ATTEND Internal Medicine
DX: E11.9 Type 2 diabetes mellitus without complications (principal); D64.9 Anemia, unspecified
CPT/HCPCS: 36415; 80076; 81001; 82607; 83540; 83550; 83615; 85025

== ENCOUNTER 2021-01-21 09:39 | Emergency (ER) | payer OTHER ==
[~2021-01-21] VITALS: Ht 147.3 cm; Wt 86.6 kg
[2021-01-21 10:06] VITALS: BP 163/85
== END 2021-01-21 13:22 | disposition home or self-care (01) ==
LOC: ER 09:39
DX: K59.00 Constipation, unspecified (principal)
CPT/HCPCS: 74176

== ENCOUNTER 2021-01-23 11:22 | Emergency (ER) | payer OTHER ==
[~2021-01-23] VITALS: Ht 147.3 cm; Wt 86.6 kg
[2021-01-23 11:22] VITALS: BP 117/56
== END 2021-01-23 14:19 | disposition left against medical advice (07) ==
LOC: ER 11:22
DX: R11.2 Nausea with vomiting, unspecified (principal); R53.1 Weakness; R35.0 Frequency of micturition; Z53.21 Procedure and treatment not carried out due to patient leaving prior to being seen by health care provider

== ENCOUNTER → 2021-03-02 | Outpatient (CLI) | payer OTHER | END | disposition home or self-care (01) | LOC: LAB 10:01 | PROVIDERS: ATTEND Nurse Practitioner Family | DX: R30.0 Dysuria (principal); R82.90 Unspecified abnormal findings in urine; N30.90 Cystitis, unspecified without hematuria | CPT/HCPCS: 87086 ==

== ENCOUNTER 2021-03-19 13:00 | Outpatient (CLI) | payer OTHER ==
[~2021-03-19 13:00] MED LIST changes: -ASPI1TAB91 PO; -BACL10TA PO; +LISI-275 PO; -LISI2.5T47 PO
== END 2021-03-19 13:16 | disposition home or self-care (01) ==
LOC: Rad HDHVI 13:00
PROVIDERS: ATTEND Internal Medicine Cardiovascular Disease
DX: Z01.818 Encounter for other preprocedural examination (principal); I70.0 Atherosclerosis of aorta
CPT/HCPCS: 36415; 71046

== ENCOUNTER → 2021-03-26 | Outpatient (CLI) | payer OTHER | END | disposition home or self-care (01) | LOC: LAB 11:03 | PROVIDERS: ATTEND Internal Medicine | DX: E11.9 Type 2 diabetes mellitus without complications (principal); I10 Essential (primary) hypertension | CPT/HCPCS: 36415; 83036; 84439; 84443; 84550; 86200; 86431 ==

== ENCOUNTER 2023-10-16 10:20 | Inpatient (IN) | payer OTHER ==
[~2023-10-16] VITALS: Ht 147.3 cm; Wt 89.7 kg
[~2023-10-16 10:20] MED LIST changes: -BENZ1TAB2 PO; +BENZ1TAB6 PO; -ESCI-34 PO; +ESCI1TAB37 PO; +GABA-1250 PO; -GABA300C10 PO; -SIMV-13 PO; +SIMV40TA18 PO
[2023-10-16 10:58] LABS: Basophils # (auto) 0 10 ^3/uL (0-0.2); Basophils % (auto) 0.3 % (0.0-2.0); Eosinophils # (auto) 0.1 10 ^3/uL (0-0.8); Hematocrit 36.1 % (36.0-46.0); Hemoglobin 11.9 g/dL (12.2-16.2); Lymphocytes # (auto) 1.6 10 ^3/uL (0.4-5.4); Lymphocytes % (auto) 23.3 % (10.0-50.0); Mean Corpuscular Hemoglobin 28.4 pg (28.0-32.0); Mean Corpuscular Volume 86.1 fL (80.0-100.0); Monocytes # (auto) 0.4 10 ^3/uL (0-1.3); Monocytes % (auto) 6.4 % (0.0-12.0); Neutrophils # (auto) 4.7 10 ^3/uL (1.6-8.6); Red Blood Cells 4.19 10^6/uL (4.0-5.20); Red Cell Distribution Width 13.4 % (11.8-14.3); White Blood Cell 6.9 10^3/uL (4.4-10.8)
[2023-10-16 11:22] LABS: Alanine Aminotransferase 11 U/L (7-40); Albumin 4.2 g/dL (3.2-4.8); Alkaline Phosphatase 97 U/L (46-116); Anion Gap 5 (5-15); Aspartate Aminotransferase 14 U/L (13-40); BUN/Creatinine Ratio 10.3 (10.0-20.0); Bilirubin, Total 0.5 mg/dL (0.2-1.0); Blood Urea Nitrogen 7 mg/dL (9-23); Calcium 8.8 mg/dL (8.7-10.4); Carbon Dioxide 28 mmol/L (20-30); Chloride 109 mmol/L (98-107); Glucose 110 mg/dL (74-106); Sodium 142 mmol/L (136-145)
[2023-10-16 11:23] LABS: Total Protein 6.3 g/dL (5.7-8.2)
[2023-10-16 12:32] LABS: Rapid Influenza A Negative (Negative); Rapid Influenza B Negative (Negative)
[2023-10-16 12:33] LABS: COVID19 ANTIGEN SOFIA FIA NEGATIVE (NEGATIVE)
[2023-10-16 12:36] LABS: Urine Bacteria NONE SEEN /hpf (None Seen); Urine Blood Negative /uL (Negative); Urine Clarity Clear (Clear); Urine Color Yellow (Yellow); Urine Hyaline Cast FEW /lpf (0 - 2); Urine Protein, UAD Negative (Negative); Urine Urobilinogen Normal (Negative); Urine WBC <1 /hpf (0 - 5); Urine pH 5.5 (5.0-8.0)
[2023-10-16] MEDS: IOHEXOL 350 MG/ML 100ML IJ ONE (14:45)
[2023-10-16 15:22] LABS: Base Excess -0.1 mmol/L (-2.0-2.0)
[2023-10-16] MEDS ORDERED: NITROGLYCERIN 0.4 MG SL TAB SL PRN (16:30)
[2023-10-16] MEDS ORDERED: HYDROcodone-ACET 5/325MG TAB PO PRN (16:30)
[2023-10-16] MEDS ORDERED: ONDANSETRON HCL 4 MG/2 ML VIAL IV PRN (16:30)
[2023-10-16] MEDS ORDERED: MORPHINE SULFATE INJ 2 MG/ml SYRG IV PRN (16:30)
[2023-10-16] MEDS: IPRATROPIUM BROM 0.5 MG/2.5ML INH SOL NEB SCH (17:35)
[2023-10-16] MEDS: ALBUTEROL SULF 2.5 MG/0.5ML(0.5%) NEB SOLN NEB SCH (17:35)
[2023-10-16] MEDS: BUDESONIDE (INHALATION) 0.5 MG/2 ML NEB NEB SCH (22:00)
[2023-10-16 22:25] VITALS: BP 183/80; PULSE 76; RESP 20; TEMP 97.5; O2SAT 95
[2023-10-17] VITALS (9 sets, daily range): BP systolic 113–154; BP diastolic 63–80; PULSE 55–92; RESP 16–18; TEMP 36.6–37.2; O2SAT 91–100
[2023-10-17] MEDS: FUROSEMIDE 20 MG/2 ML VIAL IV SCH (01:16)
[2023-10-17] MEDS: hydrALAZINE HCL 20 MG/ML VL IV PRN (01:17)
[2023-10-17] MEDS: POTASSIUM CHL 10 Meq TABLET PO SCH (01:17)
[2023-10-17] MEDS ORDERED: LAMO200T34 PO (07:05)
[2023-10-17] MEDS ORDERED: LOSA50TA46 PO (07:05)
[2023-10-17] MEDS ORDERED: VITA200T2 PO (07:05)
[2023-10-17] MEDS ORDERED: LATA0.008 EACHEYE (07:05)
[2023-10-17] MEDS ORDERED: METH50006 SL (07:05)
[2023-10-17] MEDS ORDERED: LATA1POW XX (07:05)
[2023-10-17] MEDS ORDERED: MAGN1TAB29 PO (07:05)
[2023-10-17] MEDS: cefTRIAXone 1GM/50ML D5W 50 ML IV SCH (10:51)
[2023-10-17] MEDS: ENOXAPARIN SOD 40 MG/0.4 ML SYRINGE SC SCH (10:51)
[2023-10-17] MEDS ORDERED: FURO40TA4 PO (15:15)
== END 2023-10-17 17:19 | disposition home or self-care (01) | DRG 291 ==
LOC: ER 10:20 → OVERFLOW 16:36 → WEST WING 16:36
PROVIDERS: ADMIT Hospitalist; ATTEND Hospitalist
DX: I13.0 Hypertensive heart and chronic kidney disease with heart failure and stage 1 through stage 4 chronic kidney disease, or unspecified chronic kidney disease (principal); I50.33 Acute on chronic diastolic (congestive) heart failure; J96.01 Acute respiratory failure with hypoxia; J98.11 Atelectasis; Z68.41 Body mass index [BMI] 40.0-44.9, adult; E66.2 Morbid (severe) obesity with alveolar hypoventilation; Z20.822 Contact with and (suspected) exposure to COVID-19; F32.A Depression, unspecified; E78.5 Hyperlipidemia, unspecified; F41.9 Anxiety disorder, unspecified; G89.29 Other chronic pain; J45.909 Unspecified asthma, uncomplicated; E88.810 Metabolic syndrome; E11.22 Type 2 diabetes mellitus with diabetic chronic kidney disease; N18.9 Chronic kidney disease, unspecified; Z79.4 Long term (current) use of insulin; Z79.84 Long term (current) use of oral hypoglycemic drugs; Z90.710 Acquired absence of both cervix and uterus; Z82.49 Family history of ischemic heart disease and other diseases of the circulatory system; Z83.3 Family history of diabetes mellitus; Z88.2 Allergy status to sulfonamides
CPT/HCPCS: 36415; 36600; 71045; 71275; 80053; 81001; 82805; 83605; 83880; 84484; 85025; 85379; 87426; 87804; 93005; 93306; 94640; G0378

== ENCOUNTER 2024-08-02 10:56 | Emergency (ER) | payer OTHER ==
[~2024-08-02] VITALS: Ht 147.3 cm; Wt 89.1 kg
[~2024-08-02 10:56] MED LIST changes: -BENZ1TAB6 PO; +FURO40TA4 PO; +LAMO200T34 PO; +LATA0.008 EACHEYE; -LISI-275 PO; +LOSA-534 PO; +MAGN1TAB29 PO; -PERCOT PO
[2024-08-02 13:16] VITALS: BP 149/56; PULSE 73; RESP 18; TEMP 97.8; O2SAT 95
[2024-08-02] MEDS ORDERED: BENZ100C97 PO (14:11)
[2024-08-02] MEDS ORDERED: LIDO5DIS21 TOP (14:11)
[2024-08-02] MEDS ORDERED: PROM1SOL4 PO (14:11)
[2024-08-02] MEDS ORDERED: AZIT-43 PO (14:11)
--- NOTE | 2024-08-02 14:11 | ED.PDOC ---
SOB-HPI HPI Comments Portions of this chart may have been created with an modal fluency direct voice recognition software. Occasional wrong-word or "sound-alike" substitutions may have occurred due to the inherent limitations of voice recognition software. Please read the chart carefully and recognize, using context, where these substitutions have occurred. This is a pleasant 73-year-old female that presents with a chief complaint of URI symptoms. Symptoms started four days ago. Currently complains of myalgia, malaise, sore throat, and a productive cough with a green phlegm. Admits to sick contacts. States that there has been has a same symptoms. She is also able to get minimal relief with [id number] cough and cold medications. Denies fevers chills night sweats unintentional weight loss Denies persistent chest pain, shortness of breath, leg swelling Denies recent international travel Chief Complaint: Flu like Time Seen by MD: 12:27 Primary Care Provider: YAMILKA Reviewed notes: Nurses Notes, Medications, Allergies Information Source: Patient Mode of Arrival: Ambulatory Past Medical History PAST MEDICAL HISTORY: Angina, DM, High Lipids, HTN Surgical History: Hysterectomy SCHEDULE CLERK History: No Pertinent SCHEDULE CLERK History Family History Family History: Reviewed,noncontributory to illness Social History Smoker: Non-Smoker Alcohol: Denies ETOH Use Drugs: Denies Drug Use Lives In: Home All Other Systems: Reviewed and Negative (Per HPI) Physical Exam General Appearance: No Apparent Distress, Normal HEENT: Head (Normocephalic atraumatic), Normal ENT Inspection, Pharynx Normal, TMs Normal Neck: Full Range of Motion, Non-Tender, Normal, Normal Inspection Respiratory: Chest Non-Tender, Lungs Clear, No Accessory Muscle Use, No Respiratory Distress, Normal Breath Sounds Cardiovascular: No Murmur, No Gallop, Regular Rate/Rhythm Breast Exam: Deferred Gastrointestinal: No Organomegaly, Non Tender, No Pulsatile Mass, Normal Bowel Sounds, Soft Genitalia: Deferred Pelvic: Deferred Rectal: Deferred Extremities: No calf tenderness, Normal capillary refill, Normal inspection, Normal range of motion, Non-tender, No pedal edema Musculoskeletal : Apperance: Normal Neurologic: Alert, No Motor Deficits, Normal Affect, Normal Mood, No Sensory Deficits Cerebellar Function: Normal Reflexes: Normal Skin: Dry, Normal Color, Warm Lymphatic: No Adenopathy Was a procedure done? Was a procedure done?: No Differential Dx Differential Diagnosis: Bronchitis X-Ray, Labs, Meds, VS Vital Signs Date Time Temp Pulse Resp B/P (MAP) Pulse Ox O2 Delivery O2 Flow Rate FiO2 08/02/24 13:16 73 18 95 Room Air 08/02/24 13:16 97.8 73 18 149/56 (87) 95 97.8 08/02/24 11:15 97.8 73 18 149/56 (87) 95 X-Ray, Labs, Meds, VS Comment Nontoxic non ill-appearing. Based on show decision-making patient agreed to empiric treatment. Patient is stable for discharge at this time. External notes reviewed. All diagnostic findings, discharge care, education and instructions provided Follow-up with PCP in 2 to 3 days Patient verbalized understanding and agreed to treatment plan Vital signs stable, afebrile, no acute distress noted Patient ambulatory with strong steady gait Advised to return precautions for any new or worsening symptoms, return to ER immediately for re-evaluation Patient is aware that the purpose of this visit was for an acute medical emergency requiring emergent stabilization. Chronic conditions, including malignancies have not been ruled out. Patient is instructed to follow up with PCP as directed and discharge instructions for continued care and workup. If unable to arrange follow-up, patient is to return to the emergency department for reassessment. Patient (parent or legal guardian if applicable) was given verbal and written discharge instructions and acknowledges understanding. Time of 1ST Reevaluation: 14:00 Reevaluation 1ST: Improved Patient Education/Counseling: Diagnosis, Treatment Family Education/Counseling: Diagnosis, Treatment Departure 1 Departure Time of Disposition: 14:10 Impression: Primary Impression: Viral syndrome Disposition: HOME / SELF CARE / HOMELESS Condition: Stable e-Prescriptions Lidocaine (LIDODERM 5% TOPICAL PATCH) 1 Patch Ph 1 PATCH TOP DAILY for 30 Days, #30 PATCH 0 Refills Prov: AURELIO MIKE CRYSTAL GROWER 08/02/24 Benzonatate (Benzonatate) 100 Mg Cap 1 CAP PO TID for 10 Days, #30 CAP 0 Refills Prov: AURELIO MIKE CRYSTAL GROWER 08/02/24 Promethazine-Dm (Promethazine Dm 6.25-15 mg/5Ml) 1 Eden Eden 5 ML PO TID for 10 Days, #150 ML 0 Refills Prov: AURELIO MIKE NP 08/02/24 Azithromycin (Azithromycin) 250 Mg Tab 250 MG PO DAILY MDD 500 for 5 Days, #6 TAB 0 Refills 2 TABLETS ORALLY ON DAY ONE, THEN 1 TABLET ORALLY DAILY FOR 4 DAYS Prov: AURELIO MIKE NP 08/02/24 Discharged With: Self Critical Care Note Critical Care Time?: No Stability Stability form required: No Heart Score Heart Score: Heart Score Response (Comments) Value History N/A 0 EKG N/A 0 Age N/A 0 Risk Factors N/A 0 Troponin N/A 0 Total 0 AURELIO MIKE NP Aug 02, 2024 14:11
== END 2024-08-02 14:18 | disposition home or self-care (01) ==
LOC: ER 10:56
DX: B34.9 Viral infection, unspecified (principal); I10 Essential (primary) hypertension; E11.9 Type 2 diabetes mellitus without complications; E78.5 Hyperlipidemia, unspecified; Z90.710 Acquired absence of both cervix and uterus

== ENCOUNTER 2025-05-03 14:52 | Inpatient (IN) | payer OTHER ==
[~2025-05-03] VITALS: Ht 147.3 cm; Wt 87.7 kg
[~2025-05-03 14:52] MED LIST changes: +AZIT-43 PO; +BENZ100C97 PO; +LIDO5DIS21 TOP; +PROM1SOL4 PO
--- NOTE | 2025-05-03 15:08 | ED.PDOC ---
HPI Comments 74-year-old female patient presents to the ED via EMS with a chief complaint of chest pain onset last night. Per EMS patient was not choice radiating, had EKG done and was told she had a blockage, 911 was called. Eighth she has been experiencing chest pain since last night, currently experiencing chest pressure radiating to her back. She tested positive for COVID on 04/13/25, tested negative on 04/27/25. PMHx HTN, HLD, CHF, angina, depression, DM. Denies any dizziness, nausea, diarrhea, headache, numbness/tingling, weakness, fever. No other symptoms or modifying factors present at this time. Chief Complaint: Chest Pain Time Seen by MD: 15:05 Primary Care Provider: YAMILKA Reviewed Notes: Medications, Allergies Allergies: Coded Allergies: Sulfa Antibiotics (Verified Allergy, Unknown, 03/06/21) Home Meds Active Scripts Lidocaine (LIDODERM 5% TOPICAL PATCH) 1 Patch Ph, 1 PATCH TOP DAILY for 30 Days, #30 PATCH 0 Refills Prov:AURELIO MIKE NP 08/02/24 Benzonatate (Benzonatate) 100 Mg Cap, 1 CAP PO TID for 10 Days, #30 CAP 0 Refills Prov:AURELIO MIKE NP 08/02/24 Promethazine-Dm (Promethazine Dm 6.25-15 mg/5Ml) 1 Eden Eden, 5 ML PO TID for 10 Days, #150 ML 0 Refills Prov:AURELIO MIKE NP 08/02/24 Azithromycin (Azithromycin) 250 Mg Tab, 250 MG PO DAILY MDD 500 for 5 Days, #6 TAB 0 Refills 2 TABLETS ORALLY ON DAY ONE, THEN 1 TABLET ORALLY DAILY FOR 4 DAYS Prov:AURELIO MIKE NP 08/02/24 Furosemide (Furosemide) 40 Mg Tab, 1 TAB PO DAILY, #30 TAB Prov:CHRISTIN POE MD 10/17/23 Reported Medications Latanoprost (LATANOPROST) 0.005 % Eden, 1 DROP EACHEYE QPM, #2.5 ML 6 Refills 10/17/23 Magnesium (Magnesium 400 mg) 1 Tab Tab, 1 TAB PO, TAB 10/17/23 Lamotrigine (Lamotrigine) 200 Mg Tab, 1 TAB PO DAILY, #30 TAB 2 Refills 10/17/23 Losartan Potassium (Losartan Potassium) 50 Mg Tab, 50 MG PO DAILY for 30 Days, MG 10/17/23 Gabapentin (Gabapentin) 300 Mg Cap, 300 MG PO TID for 30 Days, MG 03/05/21 Alprazolam (Xanax) 1 Mg Tab, 1 TAB PO BID, #60 TAB 12/26/20 Insulin Lispro (Humalog Kwikpen) 100 Unit/Ml Inj, 10 UNIT SC TID, INJ 09/29/18 Simvastatin (Simvastatin) 40 Mg Tab, 40 MG PO HS for 30 Days 09/29/18 Escitalopram Oxalate (ESCITALOPRAM OXALATE) 20 Mg Tab, 20 MG PO DAILY, TAB 09/29/18 Donepezil Hydrochloride (DONEPEZIL HCL) 10 Mg Tab, 10 MG PO HS for 30 Days, MG 09/29/18 Metformin Hydrochloride (Metformin Hcl) 500 Mg Tab, 1000 MG PO BIDHY for 30 Days, MG 09/29/18 Hydrocodone-Acetaminophen (Hydrocodone Bitartrate/AC 10-325 mg) 1 Tab Tab, 1 TAB PO TIDPRN PRN for MILD PAIN, TAB 09/29/18 Pantoprazole Sodium (PANTOPRAZOLE SODIUM) 40 Mg Inj, 40 MG PO DAILY, INJ 09/29/18 Information Source: Patient, Emergency Med Personnel Mode of Arrival: Ambulatory Severity: Moderate Timing: Days Duration: Since onset Prehospital treatment: None Location: Chest (L) Radiation: Back Quality: Pressure Onset: At Rest Cardiac Risk Factors: Hyperlipidemia, HTN, Diabetes PE Risk Factors: None History of: None Modifying Factors: Nothing Associated Signs and Symptoms: Back Pain Past Medical History PAST MEDICAL HISTORY: Angina, CHF, Depression, DM, High Lipids, HTN Surgical History: Hysterectomy SEARCH ENGINE OPTIMIZATION CONSULTANT History: No Pertinent SEARCH ENGINE OPTIMIZATION CONSULTANT History Family History Family History: Reviewed,noncontributory to illness Social History Smoker: Non-Smoker Alcohol: Denies ETOH Use Drugs: Denies Drug Use Lives In: Home Constitutional: denies: chills, diaphoresis, fatigue, fever, malaise, sweats, weakness, others EENTM: denies: blurred vision, double vision, ear bleeding, ear discharge, ear drainage, ear pain, ear ringing, eye pain, eye redness, hearing loss, mouth pain, mouth swelling, nasal discharge, nose bleeding, nose congestion, nose nazanin n, photophobia, tearing, throat pain, throat swelling, voice changes, others Respiratory: denies: cough, hemoptysis, orthopnea, SOB at rest, shortness of breath, SOB with excertion, stridor, wheezing, others Cardiovascular: reports: chest pain; denies: dizzy spells, diaphoresis, Dyspnea on exertion, edema, irregular heart beat, left arm pain, lightheadedness, palpitations, PND, syncope, others Gastrointestinal: denies: abdomen distended, abdominal pain, blood streaked bowels, constipated, diarrhea, dysphagia, difficulty swallowing, hematemesis, me shawn, nausea, poor appetite, poor fluid intake, rectal bleeding, rectal pain, vomiting, others Genitourinary: denies: abnormal vagina bleeding, burning, dyspareunia, dysuria, flank pain, frequency, hematuria, incontinence, pain, , vagina discharge, urgency, others Neurological: denies: dizziness, fainting, headache, left sided numbness, left sided weakness, numbness, paresthesia, pre-existing deficit, right sided numbness, right sided weakness, seizure, speech problems, tingling, tremors, weakness, others Musculoskeletal: reports: back pain; denies: gout, joint pain, joint swelling, muscle pain, muscle stiffness, neck pain, others Integumetry: denies: bruises, change in color, change in hair/nails, dryness, laceration, lesions, lumps, rash, wounds, others Allergic/Immunocompromised: denies: Difficulty Healing, Frequent Infections, Hives, Itching, others Hematologic/Lymphatic: denies: anemia, blood clots, easy bleeding, easy bruising, swollen glands, others Endocrine: denies: excessive hunger, excessive sweating, excessive thirst, excessive urination, flushing, intolerance to cold, intolerance to heat, unexplained weight gain, unexplained weight loss, others Psychiatric: denies: anxiety, bipolar disorder, depression, hopeless, panic disorder, schizophrenia, sleepless, suicidal, others All Other Systems: Reviewed and Negative Physical Exam General Appearance: Moderate Distress, Normal HEENT: Normal ENT Inspection, Pharynx Normal, TMs Normal Neck: Full Range of Motion, Non-Tender, Normal, Normal Inspection Respiratory: Chest Non-Tender, Lungs Clear, No Accessory Muscle Use, No Respiratory Distress, Normal Breath Sounds Cardiovascular: No Edema, No JVD, No Murmur, No Gallop, Normal Peripheral Pulses, Regular Rate/Rhythm Breast Exam: Deferred Gastrointestinal: No Organomegaly, Non Tender, No Pulsatile Mass, Normal Bowel Sounds, Soft Genitalia: Deferred Pelvic: Deferred Rectal: Deferred Extremities: No calf tenderness, Normal capillary refill, Normal inspection, Normal range of motion, Non-tender, No pedal edema Musculoskeletal : Apperance: Normal Neurologic: Alert, electric relay tester II-XII nml as Tested, No Motor Deficits, Normal Affect, Normal Mood, No Sensory Deficits Cerebellar Function: NOT DONE Reflexes: NOT DONE Skin: Dry, Normal Color, Warm Peripheral Pulses: 3+ Radial (R), 3+ Radial (L) Lymphatic: No Adenopathy Was a procedure done? Was a procedure done?: No CP Differential Dx Differential Diagnosis: A-fib, A-Flutter, Angina, Anxiety / Panic Attack, Atrial Dysrhythmia, Electrolyte Disorder X-Ray, Labs, Meds, VS Vital Signs Date Time Temp Pulse Resp B/P (MAP) Pulse Ox O2 Delivery O2 Flow Rate FiO2 05/03/25 15:55 70 05/03/25 15:37 98 Nasal Cannula* 2 28 05/03/25 15:37 97.7 82 20 135/57 (83) 92 97.7 05/03/25 15:37 82 20 98 Nasal Cannula* 2 28 05/03/25 14:55 75 05/03/25 14:52 99.5 75 18 129/69 96 99.5 Lab Test 05/03/25 15:53 05/03/25 14:59 Range/Units White Blood Count 9.2 4.4-10.8 10^3/uL Red Blood Count 4.88 4.0-5.20 10^6/uL Hemoglobin 13.8 12.2-16.2 g/dL Hematocrit 41.7 36.0-46.0 % Mean Corpuscular Volume 85.3 80.0-100.0 fL Mean Corpuscular Hemoglobin 28.3 28.0-32.0 pg Mean Corpuscular Hemoglobin Concent 33.2 32.0-36.0 g/dL Red Cell Distribution Width 13.5 11.8-14.3 % Platelet Count 266 140-450 10^3/uL Mean Platelet Volume 9.1 6.9-10.8 fL Neutrophils (%) (Auto) 89.0 H 37.0-80.0 % Lymphocytes (%) (Auto) 9.7 L 10.0-50.0 % Monocytes (%) (Auto) 1.1 0.0-12.0 % Eosinophils (%) (Auto) 0.1 0.0-7.0 % Basophils (%) (Auto) 0.1 0.0-2.0 % Neutrophils # (Auto) 8.2 1.6-8.6 10 ^3/uL Lymphocytes # (Auto) 0.9 0.4-5.4 10 ^3/uL Monocytes # (Auto) 0.1 0-1.3 10 ^3/uL Eosinophils # (Auto) 0 0-0.8 10 ^3/uL Basophils # (Auto) 0 0-0.2 10 ^3/uL Nucleated Red Blood Cells 0.0 % Sodium Level 134 L 136-145 mmol/L Potassium Level 4.9 3.5-5.1 mmol/L Chloride Level 96 L 98-107 mmol/L Carbon Dioxide Level 28 20-31 mmol/L Anion Gap 10 5-15 Blood Urea Nitrogen 14 9-23 mg/dL Creatinine 1.08 H 0.550-1.02 mg/dL Glomerular Filtration Rate Calc 54 >90 mL/min BUN/Creatinine Ratio 13.0 10.0-20.0 Serum Glucose 283 H 74-106 mg/dL Calcium Level 9.5 8.7-10.4 mg/dL Troponin I High Sensitivity 3 L < 3 L </=34 ng/L Patient alert. Complaining of chest pain. EKG reviewed does show left bundle branch block. Blood sugar elevated. Continues to have chest pain. Cardiac marker within normal limits. Was given aspirin. Was given nitro. Continue to monitor. Time of 1ST Reevaluation: 15:35 Reevaluation 1ST: Unchanged Patient Education/Counseling: Diagnosis, Treatment, Prognosis Family Education/Counseling: No Family Present SEPSIS Sepsis Screen Date sepsis recognized/suspect: May 03, 2025 Time Sepsis recognized/suspect: 1451 Recent Procedure: No On Antibiotic Therapy: No Respiratory Rate >20: No Heart Rate >90: No Temp<36 C (96.8 F) or >38.3 C: No SBP <90 or MAP <65 mmHG: No New Acute Mental Status Change: No Is the patient on CPAP, BIPAP,: No Physician Orders Electrocardigram (05/03/25 17:53) Troponin-I Hs (05/03/25 17:53) Urinalysis (05/03/25 14:57) Chest Xray 1 View (05/03/25 16:03) Vital Signs Date Time Temp Pulse Resp B/P (MAP) Pulse Ox O2 Delivery O2 Flow Rate FiO2 05/03/25 15:55 70 05/03/25 15:37 98 Nasal Cannula* 2 28 05/03/25 15:37 97.7 82 20 135/57 (83) 92 97.7 05/03/25 15:37 82 20 98 Nasal Cannula* 2 28 05/03/25 14:55 75 05/03/25 14:52 99.5 75 18 129/69 96 99.5 Laboratory Tests Test 05/03/25 15:53 White Blood Count 9.2 10^3/uL (4.4-10.8) Departure 1 Departure Time of Disposition: 16:39 Impression: Primary Impression: Chest pain of unknown etiology Additional Impression: Hyperglycemia Disposition: ADMITTED INPATIENT Admit to: Med Surg Condition: Guarded Critical Care Note Critical Care Time?: No Stability Stability form required: No Heart Score Heart Score: Heart Score Response (Comments) Value History Slightly Suspicious 0 EKG Normal 0 Age >65 2 Risk Factors >3 or Hx ASHD 2 Troponin Normal limit 0 Total 4 I personally scribed for TIANA MORA MD ([email or web address]) on 05/03/25 at 15:08. Electronically submitted by Emmy Johnson ([email or web address]). TIANA MORA MD May 03, 2025 15:08
--- NOTE | 2025-05-03 15:21 | ECG ---
[facility] Test Date: 2025-05-03 Test Time: 14:55:00 Pat Name: MINNIE HERNANDEZ Department: Room: 0220T Gender: F Physician Obstetrician: SHUBHAM : 1950 Requested By: TIANA MORA Order Number: [id number] Reading MD: Ruddy Brito Measurements Intervals [place] Rate: 75 P: 48 WA: 194 QRS: -22 QRSD: 164 T: 92 QT: 443 QTc: 495 Interpretive Statements Sinus rhythm Left bundle branch block Electronically Signed On 05-10-2025 19:01:13 PDT by Ruddy Brito Please click the below link to view image of tracing.
[2025-05-03 15:37] VITALS: PULSE 82; RESP 20; O2SAT 98
--- NOTE | 2025-05-03 16:18 | ECG ---
[facility] Test Date: 2025-05-03 Test Time: 15:55:46 Pat Name: MINNIE HERNANDEZ Department: Room: 0220T Gender: F Video Game Programmer: SHUBHAM : 1950 Requested By: TIANA MORA Order Number: [id number] Reading MD: Ruddy Briot Measurements Intervals [place] Rate: 70 P: 14 MT: 200 QRS: -37 QRSD: 161 T: 80 QT: 428 QTc: 462 Interpretive Statements Sinus rhythm Left bundle branch block Electronically Signed On 05-10-2025 19:01:51 PDT by Ruddy Brito Please click the below link to view image of tracing.
[2025-05-03 16:19] LABS: Hematocrit 41.7 % (36.0-46.0); Hemoglobin 13.8 g/dL (12.2-16.2); Mean Corpuscular Hemoglobin 28.3 pg (28.0-32.0); Mean Corpuscular Volume 85.3 fL (80.0-100.0); Nucleated Red Blood Cells % 0.0 %
[2025-05-03 16:24] LABS: Potassium 4.9 mmol/L (3.5-5.1)
[2025-05-03 16:25] LABS: Anion Gap 10 (5-15); Carbon Dioxide 28 mmol/L (20-31)
[2025-05-03 16:26] LABS: Calcium 9.5 mg/dL (8.7-10.4); Chloride 96 mmol/L (98-107); Sodium 134 mmol/L (136-145)
[2025-05-03 16:32] LABS: Glucose 283 mg/dL (74-106)
--- NOTE | 2025-05-03 16:33 | DVH ---
EXAM: XY CHEST XRAY 1 VIEW HISTORY: chest pain COMPARISON: XR CHEST 1 VIEW on DOS: 03/08/25, XY CHEST PORTABLE on DOS: 10/16/23, XR CHEST 1 VIEW on DO S: 09/29/23, XR CHEST 1 VIEW on DOS: 06/21/23, XR CHEST 1 VIEW on DOS: 10/09/21 TECHNIQUE: Portable upright AP view of the chest was performed. FINDINGS: No pneumothorax, consolidative infiltrates, or pulmonary edema. The heart is not enlarged. There is t horacic degenerative disc disease. There are Surgical clips about the GE junction. IMPRESSION: No acute intrathoracic process.
[2025-05-03 16:36] LABS: BUN/Creatinine Ratio 13.0 (10.0-20.0); Blood Urea Nitrogen 14 mg/dL (9-23)
[2025-05-03] MEDS ORDERED: ONDANSETRON HCL 4 MG/2 ML VIAL IV PRN (17:30)
[2025-05-03] MEDS ORDERED: DEXTROSE (50%) 50ML SYRG IV PRN (17:30)
[2025-05-03] MEDS ORDERED: MORPHINE SULFATE INJ 2 MG/ml SYRG IV PRN (17:30)
[2025-05-03] MEDS ORDERED: NITROGLYCERIN 0.4 MG SL TAB SL PRN (17:30)
[2025-05-03 18:17] LABS: INR 1.04 (0.9-1.15); Partial Thromboplastin Time 25.2 SEC (24.5-34.5); Prothrombin Time 11.0 sec (9.3-11.8)
--- NOTE | 2025-05-03 18:40 | ECG ---
[facility] Test Date: 2025-05-03 Test Time: 18:12:42 Pat Name: MINNIE HERNANDEZ Department: Room: 0220T Gender: F Quoter: SHUBHAM : 1950 Requested By: TIANA MORA Order Number: [id number] Reading MD: Ruddy Brito Measurements Intervals [place] Rate: 68 P: 90 LA: 198 QRS: -35 QRSD: 158 T: 92 QT: 446 QTc: 475 Interpretive Statements Sinus rhythm Left bundle branch block Electronically Signed On 05-10-2025 19:04:09 PDT by Ruddy Brito Please click the below link to view image of tracing.
[2025-05-03 18:42] LABS: Urine Protein, UAD Negative (Negative)
[2025-05-03] MEDS: FUROSEMIDE 40 MG/4 ML VIAL IV SCH (18:45)
[2025-05-03] MEDS: HYDROcodone-ACET 5/325MG TAB PO PRN (18:46)
[2025-05-03 20:16] VITALS: PULSE 68; O2SAT 98
[2025-05-03] MEDS: ATORVASTATIN 20 MG TAB PO SCH (20:53)
[2025-05-03] MEDS: LISINOPRIL 20 MG TAB PO SCH (20:53)
[2025-05-03] MEDS: InsuLIN REG 1unit/0.01ml Soln (100units/ml) SC SCH (20:54)
[2025-05-03] MEDS: INSULIN LANTUS (GLARGINE) 1 /0.01ml (100units/ml) SC SCH (20:54)
[2025-05-03] MEDS: ACCU-CHEK COMFORT CURVE STRIP VI SCH (20:57)
[2025-05-03 22:37] VITALS: BP 100/44; PULSE 62; RESP 16; TEMP 98; O2SAT 97
[2025-05-03 23:22] VITALS: BP 100/44; PULSE 62; RESP 16; TEMP 98; O2SAT 97; O2SAT 98
[2025-05-03] MEDS ORDERED: MULT-1018 PO (23:38)
[2025-05-04] VITALS (8 sets, daily range): BP systolic 101–131; BP diastolic 58–82; PULSE 58–97; RESP 15–18; TEMP 97.4–98.2; O2SAT 95–98
--- NOTE | 2025-05-04 00:10 | DVHHP2 ---
Admitting Diagnosis: Chest Pain, shortness of breath History of Present Illness History Source: Patient Exam Limitations: No limitations HPI Mrs. Laura Morales is a 74-year-old female patient with a history of HTN, HLD, CHF, angina, depression, DM who presents with a chief complaint of chest pain onset Friday night. Patient reports she has been experiencing chest pain intermittently but has worsened in the past couple of days with associated shortness of breath at rest, describes the pain as midsternal chest tightness radiating to her back. She tested positive for COVID on 04/13/25, tested negative on 04/27/25. Denies any dizziness, nausea, diarrhea, headache, numbness/tingling, weakness, dysuria, fevers. Home Meds Active Scripts Lidocaine (LIDODERM 5% TOPICAL PATCH) 1 Patch Ph, 1 PATCH TOP DAILY for 30 Days, #30 PATCH 0 Refills Prov:AURELIO MIKE NP 08/02/24 Benzonatate (Benzonatate) 100 Mg Cap, 1 CAP PO TID for 10 Days, #30 CAP 0 Refills Prov:AURELIO MIKE NP 08/02/24 Promethazine-Dm (Promethazine Dm 6.25-15 mg/5Ml) 1 Eden Eden, 5 ML PO TID for 10 Days, #150 ML 0 Refills Prov:AURELIO MIKE NP 08/02/24 Azithromycin (Azithromycin) 250 Mg Tab, 250 MG PO DAILY MDD 500 for 5 Days, #6 TAB 0 Refills 2 TABLETS ORALLY ON DAY ONE, THEN 1 TABLET ORALLY DAILY FOR 4 DAYS Prov:AURELIO MIKE NP 08/02/24 Furosemide (Furosemide) 40 Mg Tab, 1 TAB PO DAILY, #30 TAB Prov:CHRISTIN POE MD 10/17/23 Reported Medications Multiple Vitamin (Multivitamins) Tab, 1 TAB PO DAILY, #90 TAB 3 Refills 05/03/25 Latanoprost (LATANOPROST) 0.005 % Eden, 1 DROP EACHEYE QPM, #2.5 ML 6 Refills 10/17/23 Magnesium (Magnesium 400 mg) 1 Tab Tab, 1 TAB PO, TAB 10/17/23 Lamotrigine (Lamotrigine) 200 Mg Tab, 1 TAB PO DAILY, #30 TAB 2 Refills 2/23/24 Losartan Potassium (Losartan Potassium) 50 Mg Tab, 50 MG PO DAILY for 30 Days, MG 10/17/23 Gabapentin (Gabapentin) 300 Mg Cap, 300 MG PO TID for 30 Days, MG 03/05/21 Alprazolam (Xanax) 1 Mg Tab, 1 TAB PO BID, #60 TAB 12/26/20 Insulin Lispro (Humalog Kwikpen) 100 Unit/Ml Inj, 10 UNIT SC TID, INJ 09/29/18 Simvastatin (Simvastatin) 40 Mg Tab, 40 MG PO HS for 30 Days 09/29/18 Escitalopram Oxalate (ESCITALOPRAM OXALATE) 20 Mg Tab, 20 MG PO DAILY, TAB 09/29/18 Donepezil Hydrochloride (DONEPEZIL HCL) 10 Mg Tab, 10 MG PO HS for 30 Days, MG 09/29/18 Metformin Hydrochloride (Metformin Hcl) 500 Mg Tab, 1000 MG PO BIDHY for 30 Days, MG 09/29/18 Hydrocodone-Acetaminophen (Hydrocodone Bitartrate/AC 10-325 mg) 1 Tab Tab, 1 TAB PO TIDPRN PRN for MILD PAIN, TAB 09/29/18 Pantoprazole Sodium (PANTOPRAZOLE SODIUM) 40 Mg Inj, 40 MG PO DAILY, INJ 09/29/18 Past Medical History Cardiac: CHF, HTN, Hyperlipidemia, Other (Angina) Pulmonary: No pertinent Hx Central Nervous System: No pertinent Hx GI: No pertinent Hx Hemotology/Oncology: No pertinent Hx Hepatobiliary: No pertinent Hx Psychiatric: Depression Musculoskeletal: No pertinent Hx Rheumotologic: No pertinent Hx Infectious Disease: No peritnent Hx ENT: No pertinent Hx Renal/: No pertinent Hx Endocrine: NIDDM Dermatology: No pertinent Hx Patient Family History: Cardiovascular disease G8 MOTHER G8 FATHER Diabetes during Diabetes mellitus G8 MOTHER G8 FATHER FH: kidney failure G8 MOTHER Smoker: No Hx (Negative) Alocohol: None Lives with: With family Domestic Violence: Neg Review of Systems Constitutional: No symptom reported Ears, Nose, & Throat: No symptom reported Eyes: No symptom reported Pulmonary/Respiratory: Dyspnea Cardiovascular: Chest Pain Gastrointestinal: No symptom reported Genitourinary: No symptom reported Musculoskeletal: No symptom reported Skin: No symptom reported Psychiatric: No symptom reported Endocrine: No symptom reported Hemotologic/Lymphatic: No symptom reported H&P Exam Vital Signs Vital Signs Date Time Temp Pulse Resp B/P (MAP) Pulse Ox O2 Delivery O2 Flow Rate FiO2 05/03/25 22:37 98.0 62 16 100/44 (62) 97 98.0 05/03/25 20:16 Nasal Cannula* 2 28 General Appeara: Well developed, Well nourished, Normal Appearance Head Exam: Normal inspection Neck Exam: Normal inspection, Non-tender, Normal alignment Eye Exam: bilateral eye Normal inspection, bilateral eye PERRL, bilateral eye EOMI Ear Exam: bilateral ear Auricle normal Nasal Exam: Normal inspection Mouth: Normal Inspection Pulmonary/Respiratory: Normal inspection, Normal breath sounds, Chest non- tender, Lungs clear Cardiovascular/Chest: Normal inspection, Regular rate, Normal Rhythm Peripheral Pulses: 2+ dorsalis pedis (R), 2+ dorsalis pedis (L), 2+ Radial (R), 2+ Radial (L) Abdominal Exam: Normal bowel sounds, Soft WHEAT CLEANER Exam: Normal hearing, Normal speech, PERRL Neuro/Mental St: Alert, Oriented Appearance: Appropriate appearance, Appropriate insight Eye contact/ Speech: Cooperative, Good eye contact, Normal speech Skin Exam: Normal inspection, Normal color, Warm/dry SEPSIS Sepsis Screen Date sepsis recognized/suspect: May 03, 2025 Time Sepsis recognized/suspect: 2019 Recent Procedure: No On Antibiotic Therapy: No Respiratory Rate >20: No Heart Rate >90: No Temp<36 C (96.8 F) or >38.3 C: No SBP <90 or MAP <65 mmHG: No New Acute Mental Status Change: No Is the patient on CPAP, BIPAP,: No Physician Orders Admit (05/03/25 17:19) Consistent Carb(Ccho)Diabetes (05/03/25 Dinner) Echo 2d Mode Cardiac Dop (05/03/25 17:19) * Cardiology Consult (05/03/25 17:19) Nitroglycerin Sublingual (Ntrostat Subli (05/03/25 17:30) Morphine Sulfate Injection (05/03/25 17:30) Stat Ekg For Chest Pain (05/03/25 17:19) Notify Md Of Changes From Base (05/03/25 17:19) Special Delivery Messenger For 24 Hours (05/03/25 17:19) Emergency Dysrhythmia Protocol (05/03/25 17:19) Rhythm Strips Once Every Shift (05/03/25 17:19) Oxygen By Nasal Cannula (05/03/25 17:19) Glucose Blood (Accu-Chek Comfort Curve T (05/03/25 22:00) Insulin R (Human) (Insulin R) (05/03/25 22:00) Dextrose 50% Syringe (05/03/25 17:30) Electrocardigram (05/04/25 04:00) Furosemide Injection (Lasix Injection) (05/03/25 18:00) Lisinopril Tablet (Zestril Tablet) (05/03/25 22:00) Ondansetron Hcl (Zofran) (05/03/25 17:30) Hydrocodone-Acet 5/325mg Tab ([place] 5/32 (05/03/25 17:30) Pantoprazole Tablet (Protonix Tablet) (05/04/25 06:00) Enoxaparin Sodium (Lovenox) (05/04/25 10:00) Aspirin Enteric Coated Tablet (Ecotrin E (05/04/25 10:00) Atorvastatin (Lipitor) (05/03/25 22:00) Insulin Lantus (Glargine) (Lantus) (05/03/25 22:00) Basic Metabolic Panel (05/04/25 04:00) Vital Signs Date Time Temp Pulse Resp B/P (MAP) Pulse Ox O2 Delivery O2 Flow Rate FiO2 05/03/25 22:37 98.0 62 16 100/44 (62) 97 98.0 05/03/25 20:53 99/69 05/03/25 20:16 98.1 68 20 99/60 (73) 98 98.1 05/03/25 20:16 68 98 Nasal Cannula* 2 28 05/03/25 20:00 75 05/03/25 18:53 66 18 122/61 (81) 95 05/03/25 18:45 122/61 05/03/25 18:12 68 05/03/25 17:51 70 20 108/46 (66) 92 05/03/25 17:00 67 17 121/57 (78) 96 Laboratory Tests Test 05/03/25 15:53 White Blood Count 9.2 10^3/uL (4.4-10.8) Medications Medications Dose Ordered Sig/Lyubov Route Start Time Stop Time Status Last Admin Dose Admin Acetaminophen/ Hydrocodone Bitart 1 tab Q4HPRN PRN PO 05/03/25 17:30 05/03/25 21:57 1 TAB Atorvastatin Calcium 20 mg HS PO 05/03/25 22:00 05/03/25 20:53 20 MG Diagnostic Test (Pha) 1 strip ACHS 05/03/25 22:00 05/03/25 20:57 1 STRIP Furosemide 40 mg BIDD IV 05/03/25 18:00 05/03/25 18:45 40 MG Insulin Glargine 10 units HS SC 05/03/25 22:00 05/03/25 20:54 10 UNITS Insulin Human Regular ACHS SC 05/03/25 22:00 05/03/25 20:54 6 UNITS Labs/Xrays Labs Test 05/03/25 20:40 05/03/25 17:47 05/03/25 15:53 Range/Units Troponin I High Sensitivity 3 L </=34 ng/L Urine Color Colorless Yellow Urine Clarity Clear Clear Urine pH 7.0 5.0-9.0 Urine Specific [place] 1.011 1.001-1.035 Urine Protein Negative Negative Urine Ketones Negative Negative Urine Blood Negative Negative /uL Urine Nitrite Negative Negative Urine Bilirubin Negative Negative Urine Urobilinogen Normal Negative mg/dL Urine Leukocyte Esterase Negative Negative /uL Urine RBC 1 0 - 4 /hpf Urine Microscopic WBC 0-5 /HPF Urine Squamous Epithelial Cells Few <5 /hpf Urine Bacteria None seen None Seen /hpf Urine Glucose 4+ H Normal mg/dL White Blood Count 9.2 4.4-10.8 10^3/uL Red Blood Count 4.88 4.0-5.20 10^6/uL Hemoglobin 13.8 12.2-16.2 g/dL Hematocrit 41.7 36.0-46.0 % Mean Corpuscular Volume 85.3 80.0-100.0 fL Mean Corpuscular Hemoglobin 28.3 28.0-32.0 pg Mean Corpuscular Hemoglobin Concent 33.2 32.0-36.0 g/dL Red Cell Distribution Width 13.5 11.8-14.3 % Platelet Count 266 140-450 10^3/uL Mean Platelet Volume 9.1 6.9-10.8 fL Neutrophils (%) (Auto) 89.0 H 37.0-80.0 % Lymphocytes (%) (Auto) 9.7 L 10.0-50.0 % Monocytes (%) (Auto) 1.1 0.0-12.0 % Eosinophils (%) (Auto) 0.1 0.0-7.0 % Basophils (%) (Auto) 0.1 0.0-2.0 % Neutrophils # (Auto) 8.2 1.6-8.6 10 ^3/uL Lymphocytes # (Auto) 0.9 0.4-5.4 10 ^3/uL Monocytes # (Auto) 0.1 0-1.3 10 ^3/uL Eosinophils # (Auto) 0 0-0.8 10 ^3/uL Basophils # (Auto) 0 0-0.2 10 ^3/uL Nucleated Red Blood Cells 0.0 % Prothrombin Time 11.0 9.3-11.8 sec Prothrombin Time INR 1.04 0.9-1.15 Activated Partial Thromboplast Time 25.2 24.5-34.5 SEC D-Dimer, Quantitative 0.35 0.0-0.49 mg/L FEU Sodium Level 134 L 136-145 mmol/L Potassium Level 4.9 3.5-5.1 mmol/L Chloride Level 96 L 98-107 mmol/L Carbon Dioxide Level 28 20-31 mmol/L Anion Gap 10 5-15 Blood Urea Nitrogen 14 9-23 mg/dL Creatinine 1.08 H 0.550-1.02 mg/dL Glomerular Filtration Rate Calc 54 >90 mL/min BUN/Creatinine Ratio 13.0 10.0-20.0 Serum Glucose 283 H 74-106 mg/dL Calcium Level 9.5 8.7-10.4 mg/dL Assessment/Plan Problem List: (1) Chest pain of unknown etiology Plan This is a 74 yo female with a history of hypertension, hyperlipidemia, CHF, Angina, Depression, DM who presents to the hospital with chest pain radiating to her back with associated shortness of breath. 1. Chest pain r/o ACS 2. Shortness of Breath 3. Chronic Hypertension 4. Chronic CHF 5. DM type 2 Plan Admit Telemetry unit Cardiology consultation, 2D echocardiogram, serial troponin levels, ASA, Statin Glucose monitoring ac & hs coverage with insulin sliding scale DVT ppx Lovenox GI ppx Protonix Discussed all above with patient who verbalizes agreement and understanding of care plan. All questions were answered. Discussed with supervising MD. Plan discussed with: Patient, Other Code Visit Code Visit Total Time (mins): 45 Additional Comments Additional Comments Additional Comments Patient's chart is reviewed and discussed with the nurse practitioner. Patient is seen evaluated and admitted by nurse practitioner. I agree with her evaluation, documentation, assessment and care plan as outlined. Patient is seen and evaluated by me earlier today. RUBY MORRIS May 04, 2025 00:10 CHRISTIN POE MD May 04, 2025 13:02
[2025-05-04] MEDS: PANTOPRAZOLE 40 MG TAB PO SCH (06:15)
[2025-05-04 06:42] LABS: Anion Gap 11 (5-15); Carbon Dioxide 31 mmol/L (20-31); Potassium 4.0 mmol/L (3.5-5.1); Sodium 138 mmol/L (136-145)
[2025-05-04 06:43] LABS: Calcium 9.8 mg/dL (8.7-10.4)
[2025-05-04 06:47] LABS: Chloride 96 mmol/L (98-107)
[2025-05-04 06:48] LABS: BUN/Creatinine Ratio 17.2 (10.0-20.0); Blood Urea Nitrogen 17 mg/dL (9-23); Glucose 112 mg/dL (74-106)
[2025-05-04] MEDS: ASPirin-EC 81 mg tab PO SCH (10:00)
[2025-05-04] MEDS: ENOXAPARIN SOD 40 MG/0.4 ML SYRINGE SC SCH (10:49)
[2025-05-04 11:39] LABS: Hepatitis B Surface Antigen Negative (Negative)
[2025-05-04 11:50] LABS: Hepatitis C Antibody Negative (Negative)
--- NOTE | 2025-05-04 12:27 | DVHINCON2 ---
Date Seen: May 04, 2025 Referring Physician MD Vinicio Reason for Consultation Chest pain History of Present Illness This is a 74-year-old female patient who presents to the emergency room with chief complaint of chest pain and shortness of breath for two days prior to emergency room arrival. The patient describes chest pain as unprovoked, intermittent, pressure-like in nature, substernal with radiation to her mid upper back. Associated symptoms include shortness of breath. Initial twelve lead electrocardiogram reveals normal sinus rhythm with left bundle branch block (as seen on previous EKG from 12/25/20). Serial troponin levels have been negative. Significant past medical history includes congestive heart failure, hypertension, dyslipidemia, type 2 diabetes mellitus, COPD, chronic kidney disease, and obesity. The patient states that she sees room server in the outpatient setting. She reports undergoing a stress test approximately three months ago for which she states was negative. Past Medical History Past medical history reviewed. No other significant than mentioned above. Past Surgical History Perforated ulcer repair Hysterectomy Family History: Cardiovascular disease G8 MOTHER G8 FATHER Diabetes during Diabetes mellitus G8 MOTHER G8 FATHER FH: kidney failure G8 MOTHER Family History Family history reviewed. Social History Denies the use of tobacco, alcohol or illicit drugs. Allergies: Coded Allergies: Sulfa Antibiotics (Verified Allergy, Unknown, 03/06/21) Home Meds Active Scripts Lidocaine (LIDODERM 5% TOPICAL PATCH) 1 Patch Ph, 1 PATCH TOP DAILY for 30 Days, #30 PATCH 0 Refills Prov:AURELIO MIKE NP 08/02/24 Benzonatate (Benzonatate) 100 Mg Cap, 1 CAP PO TID for 10 Days, #30 CAP 0 Refills Prov:AURELIO MIEK NP 08/02/24 Promethazine-Dm (Promethazine Dm 6.25-15 mg/5Ml) 1 Eden Eden, 5 ML PO TID for 10 Days, #150 ML 0 Refills Prov:AURELIO MIKE NP 08/02/24 Azithromycin (Azithromycin) 250 Mg Tab, 250 MG PO DAILY MDD 500 for 5 Days, #6 TAB 0 Refills 2 TABLETS ORALLY ON DAY ONE, THEN 1 TABLET ORALLY DAILY FOR 4 DAYS Prov:AURELIO MIKE NP 08/02/24 Furosemide (Furosemide) 40 Mg Tab, 1 TAB PO DAILY, #30 TAB Prov:CHRISTIN OPE MD 10/17/23 Reported Medications Multiple Vitamin (Multivitamins) Tab, 1 TAB PO DAILY, #90 TAB 3 Refills 05/03/25 Latanoprost (LATANOPROST) 0.005 % Deen, 1 DROP EACHEYE QPM, #2.5 ML 6 Refills 10/17/23 Magnesium (Magnesium 400 mg) 1 Tab Tab, 1 TAB PO, TAB 10/17/23 Lamotrigine (Lamotrigine) 200 Mg Tab, 1 TAB PO DAILY, #30 TAB 2 Refills 10/17/23 Losartan Potassium (Losartan Potassium) 50 Mg Tab, 50 MG PO DAILY for 30 Days, MG 10/17/23 Gabapentin (Gabapentin) 300 Mg Cap, 300 MG PO TID for 30 Days, MG 03/05/21 Alprazolam (Xanax) 1 Mg Tab, 1 TAB PO BID, #60 TAB 12/26/20 Insulin Lispro (Humalog Kwikpen) 100 Unit/Ml Inj, 10 UNIT SC TID, INJ 09/29/18 Simvastatin (Simvastatin) 40 Mg Tab, 40 MG PO HS for 30 Days 09/29/18 Escitalopram Oxalate (ESCITALOPRAM OXALATE) 20 Mg Tab, 20 MG PO DAILY, TAB 09/29/18 Donepezil Hydrochloride (DONEPEZIL HCL) 10 Mg Tab, 10 MG PO HS for 30 Days, MG 09/29/18 Metformin Hydrochloride (Metformin Hcl) 500 Mg Tab, 1000 MG PO BIDHY for 30 Days, MG 09/29/18 Hydrocodone-Acetaminophen (Hydrocodone Bitartrate/AC 10-325 mg) 1 Tab Tab, 1 TAB PO TIDPRN PRN for MILD PAIN, TAB 09/29/18 Pantoprazole Sodium (PANTOPRAZOLE SODIUM) 40 Mg Inj, 40 MG PO DAILY, INJ 09/29/18 Home Meds Home medications reviewed. Current Medications Current Medications Medications (Trade) Dose Ordered Sig/Lyubov Route PRN Reason Start Time Stop Time Status Last Admin Nitroglycerin (Ntrostat Sublingual) 0.4 mg Q5MINP PRN SL FOR CHEST PAIN 05/03/25 17:30 Morphine Sulfate 2 mg Q30M PRN IV FOR CHEST PAIN 05/03/25 17:30 Diagnostic Test (Pha) (Accu-Chek Comfort Curve T) 1 strip ACHS 05/03/25 22:00 05/04/25 11:41 Insulin Human Regular (InsuLIN R) ACHS SC 05/03/25 22:00 05/04/25 11:42 Dextrose 50 ml UD PRN IV Blood Sugar LESS THAN 60 05/03/25 17:30 Furosemide (Lasix Injection) 40 mg BIDD IV 05/03/25 18:00 05/04/25 06:15 Lisinopril (Zestril Tablet) 10 mg BID PO 05/03/25 22:00 05/04/25 10:50 Ondansetron HCl (Zofran) 4 mg Q4HPRN PRN IV NAUSEA / VOMITING 05/03/25 17:30 Acetaminophen/ Hydrocodone Bitart ([place] 5/325MG Tab) 1 tab Q4HPRN PRN PO SEVERE PAIN (7-10 PAIN SCALE) 05/03/25 17:30 05/04/25 06:26 Pantoprazole Sodium (Protonix Tablet) 40 mg BID@0600,1700 PO 05/04/25 06:00 05/04/25 06:15 Enoxaparin Sodium (Lovenox) 40 mg DAILY SC 05/04/25 10:00 05/04/25 10:49 Aspirin (Ecotrin Enteric Coated Tablet) 81 mg DAILY PO 05/04/25 10:00 Atorvastatin Calcium (Lipitor) 20 mg HS PO 05/03/25 22:00 05/03/25 20:53 Insulin Glargine (Lantus) 10 units HS SC 05/03/25 22:00 05/03/25 20:54 Review of Systems Constitutional: No symptom reported Ears, Nose, & Throat: No symptom reported Eyes: No symptom reported Neurological: No symptoms reported Pulmonary/Respiratory: Shortness of breath Cardiovascular: Chest pain Gastrointestinal: No symptom reported Genitourinary: No symptom reported Musculoskeletal: No symptom reported Skin: No symptom reported Psychiatric: No symptom reported Endocrine: No symptom reported Hematologic/Lymphatic: No symptom reported Vital Signs Vital Signs Date Time Temp Pulse Resp B/P (MAP) Pulse Ox O2 Delivery O2 Flow Rate FiO2 05/04/25 10:50 111/61 05/04/25 09:00 98.1 58 15 98 98.1 05/03/25 23:22 Nasal Cannula* 2 28 Physical Exam General Appearance: Cooperative. Obese Pulmonary/Respiratory: Clear, bilateral breaths sounds. Cardiovascular/Chest: Regular rate and rhythm. Peripheral Pulses: 2+ Radial (R). 2+ Radial (L). 2+ Pedal (R). 2+ Pedal (L) Abdominal Exam: Normal bowel sounds. Ankle Exam: Negative ankle edema Lower extremities: Negative lower extremity edema Neuro/Mental Status: A/OX4, coherent. Thoughts/Psych: Normal thought pattern. Appropriate mood and affect. Good judgment and insight. Appearance: No acute distress. Skin Exam: Normal inspection. Normal color. Warm and dry. Labs/Diagnostic Data Labs Test 05/04/25 10:53 05/04/25 05:26 05/03/25 20:40 05/03/25 17:47 Range/Units POC Glucose 185 H 70-106 mg/dl Sodium Level 138 136-145 mmol/L Potassium Level 4.0 3.5-5.1 mmol/L Chloride Level 96 L 98-107 mmol/L Carbon Dioxide Level 31 20-31 mmol/L Anion Gap 11 5-15 Blood Urea Nitrogen 17 9-23 mg/dL Creatinine 0.99 0.550-1.02 mg/dL Glomerular Filtration Rate Calc 60 >90 mL/min BUN/Creatinine Ratio 17.2 10.0-20.0 Serum Glucose 112 H 74-106 mg/dL Calcium Level 9.8 8.7-10.4 mg/dL Hepatitis B Surface Antigen Negative Negative Hepatitis C Antibody Negative Negative Troponin I High Sensitivity 3 L </=34 ng/L Urine Color Colorless Yellow Urine Clarity Clear Clear Urine pH 7.0 5.0-9.0 Urine Specific [place] 1.011 1.001-1.035 Urine Protein Negative Negative Urine Ketones Negative Negative Urine Blood Negative Negative /uL Urine Nitrite Negative Negative Urine Bilirubin Negative Negative Urine Urobilinogen Normal Negative mg/dL Urine Leukocyte Esterase Negative Negative /uL Urine RBC 1 0 - 4 /hpf Urine Microscopic WBC 0-5 /HPF Urine Squamous Epithelial Cells Few <5 /hpf Urine Bacteria None seen None Seen /hpf Urine Glucose 4+ H Normal mg/dL Test 05/03/25 15:53 Range/Units White Blood Count 9.2 4.4-10.8 10^3/uL Red Blood Count 4.88 4.0-5.20 10^6/uL Hemoglobin 13.8 12.2-16.2 g/dL Hematocrit 41.7 36.0-46.0 % Mean Corpuscular Volume 85.3 80.0-100.0 fL Mean Corpuscular Hemoglobin 28.3 28.0-32.0 pg Mean Corpuscular Hemoglobin Concent 33.2 32.0-36.0 g/dL Red Cell Distribution Width 13.5 11.8-14.3 % Platelet Count 266 140-450 10^3/uL Mean Platelet Volume 9.1 6.9-10.8 fL Neutrophils (%) (Auto) 89.0 H 37.0-80.0 % Lymphocytes (%) (Auto) 9.7 L 10.0-50.0 % Monocytes (%) (Auto) 1.1 0.0-12.0 % Eosinophils (%) (Auto) 0.1 0.0-7.0 % Basophils (%) (Auto) 0.1 0.0-2.0 % Neutrophils # (Auto) 8.2 1.6-8.6 10 ^3/uL Lymphocytes # (Auto) 0.9 0.4-5.4 10 ^3/uL Monocytes # (Auto) 0.1 0-1.3 10 ^3/uL Eosinophils # (Auto) 0 0-0.8 10 ^3/uL Basophils # (Auto) 0 0-0.2 10 ^3/uL Nucleated Red Blood Cells 0.0 % Prothrombin Time 11.0 9.3-11.8 sec Prothrombin Time INR 1.04 0.9-1.15 Activated Partial Thromboplast Time 25.2 24.5-34.5 SEC D-Dimer, Quantitative 0.35 0.0-0.49 mg/L FEU Assessment Chest pain, ruled out ACS Rule out structural heart disease Hypertension Dyslipidemia COPD Type 2 diabetes mellitus Obesity Plan/Recommendation We will continue with the following plan/recommendations (Dr. Brito): We will proceed with obtaining a transthoracic echocardiogram to evaluate cardiac function. No significant ST segment changes seen on twelve lead electrocardiogram. Troponin levels have been negative. Given the patient's clinical presentation with negative troponin levels, doubt ACS. The patient reports a recent stress test in the outpatient setting approximately three months ago in ' clinic, for which she states results were negative. The patient has also undergone a coronary angiogram with left heart catheterization on 03/06/21 in which no catheter based intervention was deemed warranted. Continue blood pressure control lipid-lowering agent. Further recommendations per clinical course and progression. Thank you for allowing us to care for this patient. Please call with any questions or concerns. Critical care time spent: 44 minutes This medical document was created using an electronic medical record system with voice recognition software and computerized dictation system. Although this document has been carefully reviewed, there might still be some phonetic and typographical errors. Occasional wrong-word or ``sound-alike substitutions may have occurred due to the inherent limitations of voice recognition software. These areas are purely typographical due to imperfections of the software programs and do not reflect any compromise in the patient's medical care. Please read the chart carefully and recognize, using context, where these substitutions have occurred. Plan discussed with: Patient NYHA Physical activity limitations: NA Date of Service: May 04, 2025 Billing Provider: PADMAJA NG Cardiology Common Codes: 23660-WQLELAF INP/OBS CARE (High) Cardiology Consultation Codes: 75781-[id number] CONSULT <45MIN PADMAJA NG May 04, 2025 12:27
[2025-05-04 14:15] LABS: Triglycerides 179.0 mg/dL (< 150)
[2025-05-04 14:16] LABS: Magnesium 2.3 mg/dL (1.6-2.6)
[2025-05-04 14:17] LABS: Cholesterol 187.0 mg/dL (< 200)
[2025-05-04 14:19] LABS: HDL Cholesterol 90.0 mg/dL (40-59)
[2025-05-04] MEDS: ALPRAZolam 0.5 MG TAB PO PRN (17:12)
[2025-05-04 18:48] LABS: Free T3 2.76 pg/mL (2.3-4.2); Free T4 (Free Thyroxine) 1.61 ng/dL (0.89-1.76)
[2025-05-04] MEDS: LISINOPRIL 20 MG TAB PO SCH (21:50)
[2025-05-04 21:53] LABS: Benzodiazephine Screen, Urine Neg (NEGATIVE); Opiate Scree,Urine Neg (NEGATIVE)
[2025-05-04 21:58] LABS: Amphetamine Screen, Urine Neg (NEGATIVE); Barbiturate Scree,Urine Neg (NEGATIVE); Cannabinoid Screen, Urine Neg (NEGATIVE); Cocaine Screen, Urine Neg (NEGATIVE); Phencyclidine Screen, Urine Neg (NEGATIVE)
[2025-05-05] VITALS (7 sets, daily range): BP systolic 78–110; BP diastolic 50–68; PULSE 55–85; RESP 16–18; TEMP 98–98.9; O2SAT 95–98
[2025-05-05 07:55] LABS: Blood Urea Nitrogen 23 mg/dL (9-23)
[2025-05-05 07:56] LABS: Anion Gap 12 (5-15); BUN/Creatinine Ratio 19.0 (10.0-20.0); Calcium 9.9 mg/dL (8.7-10.4); Potassium 3.7 mmol/L (3.5-5.1); Sodium 140 mmol/L (136-145)
[2025-05-05 07:57] LABS: Carbon Dioxide 32 mmol/L (20-31); Chloride 96 mmol/L (98-107); Glucose 130 mg/dL (74-106)
[2025-05-05] MEDS ORDERED: FURO40TA4 PO (12:49)
[2025-05-05] MEDS ORDERED: LOSA-534 PO (12:49)
--- NOTE | 2025-05-05 12:51 | DVHDS2 ---
Discharge Summary Date of Admission May 03, 2025 at 17:19 Date of Discharge: May 05, 2025 Labs/Diagnostic Data: Laboratory Results Test 05/05/25 12:35 05/05/25 06:32 05/04/25 17:44 05/04/25 05:26 Sodium Level 140 mmol/L (136-145) Potassium Level 3.7 mmol/L (3.5-5.1) Chloride Level 96 mmol/L (98-107) Carbon Dioxide Level 32 mmol/L (20-31) Anion Gap 12 (5-15) Blood Urea Nitrogen 23 mg/dL (9-23) Creatinine 1.21 mg/dL (0.550-1.02) Glomerular Filtration Rate Calc 47 mL/min (>90) BUN/Creatinine Ratio 19.0 (10.0-20.0) Serum Glucose 130 mg/dL (74-106) Calcium Level 9.9 mg/dL (8.7-10.4) B-Type Natriuretic Peptide 10.07 pg/mL (0-100) Free Thyroxine (T4) Calculated 1.61 ng/dL (0.89-1.76) Free Triiodothyronine (T3) pg/mL 2.76 pg/mL (2.3-4.2) Erythrocyte Sedimentation Rate 8 mm/hr (0-20) Hemoglobin A1c 8.4 % A1C (<5.7) Magnesium Level 2.3 mg/dL (1.6-2.6) C-Reactive Protein High Sensitivity 0.52 mg/dL (<1.0) Triglycerides Level 179 mg/dL (< 150) Cholesterol Level 187 mg/dL (< 200) LDL Cholesterol 76 mg/dL (< 100) HDL Cholesterol 90 mg/dL (40-59) Thyroid Stimulating Hormone (TSH) 0.47 uIU/mL (0.55-4.78) Hepatitis B Surface Antigen Negative (Negative) Hepatitis C Antibody Negative (Negative) Test 05/03/25 20:40 05/03/25 17:55 05/03/25 17:47 05/03/25 15:53 Troponin I High Sensitivity 3 ng/L (</=34) Urine Opiates Screen Neg (NEGATIVE) Urine Fentanyl Screen Neg (NEGATIVE) Urine Barbiturates Screen Neg (NEGATIVE) Urine Phencyclidine Screen Neg (NEGATIVE) Urine Amphetamines Screen Neg (NEGATIVE) Urine Benzodiazepines Screen Neg (NEGATIVE) Urine Cocaine Screen Neg (NEGATIVE) Urine Cannabinoids Screen Neg (NEGATIVE) Urine Color Colorless (Yellow) Urine Clarity Clear (Clear) Urine pH 7.0 (5.0-9.0) Urine Specific [place] 1.011 (1.001-1.035) Urine Protein Negative (Negative) Urine Ketones Negative (Negative) Urine Blood Negative /uL (Negative) Urine Nitrite Negative (Negative) Urine Bilirubin Negative (Negative) Urine Urobilinogen Normal mg/dL (Negative) Urine Leukocyte Esterase Negative /uL (Negative) Urine RBC 1 /hpf (0 - 4) Urine Microscopic WBC /HPF (0-5) Urine Squamous Epithelial Cells Few /hpf (<5) Urine Bacteria None seen /hpf (None Seen) Urine Glucose 4+ mg/dL (Normal) White Blood Count 9.2 10^3/uL (4.4-10.8) Red Blood Count 4.88 10^6/uL (4.0-5.20) Hemoglobin 13.8 g/dL (12.2-16.2) Hematocrit 41.7 % (36.0-46.0) Mean Corpuscular Volume 85.3 fL (80.0-100.0) Mean Corpuscular Hemoglobin 28.3 pg (28.0-32.0) Mean Corpuscular Hemoglobin Concent 33.2 g/dL (32.0-36.0) Red Cell Distribution Width 13.5 % (11.8-14.3) Platelet Count 266 10^3/uL (140-450) Mean Platelet Volume 9.1 fL (6.9-10.8) Neutrophils (%) (Auto) 89.0 % (37.0-80.0) Lymphocytes (%) (Auto) 9.7 % (10.0-50.0) Monocytes (%) (Auto) 1.1 % (0.0-12.0) Eosinophils (%) (Auto) 0.1 % (0.0-7.0) Basophils (%) (Auto) 0.1 % (0.0-2.0) Neutrophils # (Auto) 8.2 10 ^3/uL (1.6-8.6) Lymphocytes # (Auto) 0.9 10 ^3/uL (0.4-5.4) Monocytes # (Auto) 0.1 10 ^3/uL (0-1.3) Eosinophils # (Auto) 0 10 ^3/uL (0-0.8) Basophils # (Auto) 0 10 ^3/uL (0-0.2) Nucleated Red Blood Cells 0.0 % Prothrombin Time 11.0 sec (9.3-11.8) Prothrombin Time INR 1.04 (0.9-1.15) Activated Partial Thromboplast Time 25.2 SEC (24.5-34.5) D-Dimer, Quantitative 0.35 mg/L FEU (0.0-0.49) Other Laboratory Tests 05/05/25 06:32 05/03/25 15:53 Brief Hx & Hospital Course: Mrs. Laura Morales is a 74-year-old female patient with a history of HTN, HLD, CHF, angina, depression, DM who presents with a chief complaint of chest pain onset Friday night. Patient reports she has been experiencing chest pain intermittently but has worsened in the past couple of days with associated shortness of breath at rest, describes the pain as midsternal chest tightness radiating to her back. She tested positive for COVID on 04/13/25, tested negative on 04/27/25. Denies any dizziness, nausea, diarrhea, headache, numbness/tingling, weakness, dysuria, fevers. She is admitted and noted to be in any acute exacerbation of heart failure with a diastolic dysfunction. Patient apparently noncompliant with fluid restriction at home. She is taking Lasix once a day. Patient apparently gained about 10 lb in 2-3 weeks and noted to be short of breath. Therefore she is admitted and received IV Lasix twice a day and achieved good diuresis. Subsequently her shortness for breath symptoms resolved. She had an echocardiogram showed a normal EF with a diastolic dysfunction. Patient once again counseled and educated regarding her heart failure and fluid restriction as well as compliance with the her Lasix. She is advised to continue Lasix twice a day. Otherwise given overall patient's symptoms resolved feeling better it is felt she could be safely discharged home. Patient has verbalized understanding of her hospital diagnosis, treatment she received, discharge medications, discharge instructions and agree with the discharge follow-up plan of care as outlined. Operations or Procedures APPROVED REPORT EXAM: Two-dimensional and M-mode echocardiogram with Doppler and color Doppler. Blood Pressure: 115/62 mmHg INDICATION Chest Pain RISK FACTORS Height: 4'10", Weight: 163 DIMENSIONS LVDd 4.0 (3.8-5.7cm) LA (2D) 3.4 (1.9-4.0cm) Aortic Root 2.9 (2.0- 3.7cm) LVDs 3.0 (2.5-4.0cm) LA (MM) (1.9-4.0cm) Aortic Cusp Exc 1.4 (1.5- 2.0cm) EF (%) 50.0 (55-70%) Rt. Atrium 3.3 (1.9-4.0cm) Asc. Aorta cm IVSd 1.1 (0.7-1.1cm) RV (D) 3.9 (1.8-2.4cm) PWd 1.0 (0.7-1.1cm) Mitral Valve Mitral Mitral Stenosis E wave 0.54m/s MV Mean GR. mmHg A wave 0.97m/s MV Peak GR. mmHg E/A ratio 0.6 2D MVA cm2 DECEL Time 222ms PRESS 1/2 Time ms Aortic Valve Aortic Valve Aortic Stenosis V1 1.02m/s AO Mean GR. 7mmHg V2 1.76m/s AO Peak GR. 12mmHg LVOT Diameter 1.9 (1.8-2.4cm) Doppler [place] 1.64cm2 Pulmonic Valve V2 0.96m/s Tricuspid Valve TR Velocity 2.46m/s RVSP 27mmHg Other Information Quality : Technically Limited Rhythm : Technically limited study due to body habitus. Conclusion lvef 55% mild lvh normal rv function left atrium enlarged no severe valve abnormaliteis noted SIGNED BY: ELVIN LEVIN MD SIGNED DATE/TIME: 05/05/25 1414 Condition at Discharge: Stable Final Diagnosis/Problems List chf exacerbation, chronic chf Discharge Disposition: Home Discharge Instruct/Medications Diet: Consistent carbohydrate, Cardiac 2g Na,low cholest Diet comment: Limit your oral fluids intake to 1.5L per day. Activity: No Restrictions, As Tolerated Follow Up/Referral: for Echocardiogram after 2 weeks and heartfailure management Medications: as prescribed and home medications per dc list Scheduled Alprazolam (Xanax), 1 TAB PO BID, (Reported) Benzonatate (Benzonatate), 1 CAP PO TID Donepezil Hydrochloride (Donepezil Hcl), 10 MG PO HS, (Reported) Escitalopram Oxalate (Escitalopram Oxalate), 20 MG PO DAILY, (Reported) Furosemide (Furosemide), 1 TAB PO BID Gabapentin (Gabapentin), 300 MG PO TID, (Reported) Insulin Lispro (Humalog Kwikpen), 10 UNIT SC TID, (Reported) Lamotrigine (Lamotrigine), 1 TAB PO DAILY, (Reported) Latanoprost (Latanoprost), 1 DROP EACHEYE QPM, (Reported) Lidocaine (Lidoderm 5% Topical Patch), 1 PATCH TOP DAILY Losartan Potassium (Losartan Potassium), 50 MG PO DAILY Metformin Hydrochloride (Metformin Hcl), 1,000 MG PO BIDHY, (Reported) Multiple Vitamin (Multivitamins), 1 TAB PO DAILY, (Reported) Pantoprazole Sodium (Pantoprazole Sodium), 40 MG PO DAILY, (Reported) Promethazine-Dm (Promethazine Dm 6.25-15 mg/5Ml), 5 ML PO TID Simvastatin (Simvastatin), 40 MG PO HS, (Reported) Scheduled PRN Hydrocodone-Acetaminophen (Hydrocodone Bitartrate/AC 10-325 mg), 1 TAB PO TIDPRN PRN for MILD PAIN, (Reported) Miscellaneous Medications Magnesium (Magnesium 400 mg), 1 TAB PO, (Reported) Discontinued Medications Azithromycin (Azithromycin), 250 MG PO DAILY Discharge Statement: "Patient was advised to return to the ER or call 911 if any headaches, dizziness, shortness of breath, chest pain, abdominal pain, bleeding, fevers, or worsening of medical condition. Patient was counseled about treatment plan, medications, possible side effects, patientverbalized understanding. All questions were answered to the best of my ability. This discharge took greater then 30 minutes in planning, reviewing documentation, counseling the patient, and discussing with other team members." ASSESSMENT ASSESSMENT Assessment chf exacerbation, chronic chf CHRISTIN POE MD May 05, 2025 12:51
[2025-05-05] MEDS: GABAPENTIN 300 MG CAP PO SCH (12:54)
--- NOTE | 2025-05-05 14:13 | DVHSR ---
APPROVED REPORT EXAM: Two-dimensional and M-mode echocardiogram with Doppler and color Doppler. Blood Pressure: 115/62 mmHg INDICATION Chest Pain RISK FACTORS Height: 4'10", Weight: 163 DIMENSIONS LVDd4.0 (3.8-5.7cm)LA (2D)3.4 (1.9-4.0cm)Aortic Root2.9 (2.0-3.7cm) LVDs3.0 (2.5-4.0cm)LA (MM) (1.9-4.0cm)Aortic Cusp Exc1.4 (1.5-2.0cm) EF (%) 50.0 (55-70%)Rt. Atrium3.3 (1.9-4.0cm)Asc. Aorta cm IVSd1.1 (0.7-1.1cm)RV (D)3.9 (1.8-2.4cm) PWd1.0 (0.7-1.1cm) Mitral Valve MitralMitral Stenosis E wave0.54m/sMV Mean GR.mmHg A wave0.97m/sMV Peak GR.mmHg E/A ratio0.62D MVAcm2 DECEL [id number] 1/2 [place] Aortic Valve Aortic ValveAortic Stenosis V11.02m/Maria M Mean GR.7mmHg V21.76m/Maria M Peak GR.12mmHg LVOT Diameter1.9 (1.8-2.4cm)Doppler AVA1.64cm2 Pulmonic Valve V20.96m/s Tricuspid Valve TR Velocity2.46m/s [id number] Other Information Quality : Technically LimitedRhythm : Technically limited study due to body habitus. Conclusion lvef 55% mild lvh normal rv function left atrium enlarged no severe valve abnormaliteis noted
== END 2025-05-05 16:00 | disposition home or self-care (01) | DRG 291 ==
LOC: ER 14:52 → EDBD 14:52 → OVERFLOW 17:19 → TELE-CENTR 22:30
PROVIDERS: ADMIT Hospitalist; ATTEND Hospitalist
DX: I13.0 Hypertensive heart and chronic kidney disease with heart failure and stage 1 through stage 4 chronic kidney disease, or unspecified chronic kidney disease (principal); I50.31 Acute diastolic (congestive) heart failure; J44.9 Chronic obstructive pulmonary disease, unspecified; N18.9 Chronic kidney disease, unspecified; E66.9 Obesity, unspecified; E11.65 Type 2 diabetes mellitus with hyperglycemia; E11.22 Type 2 diabetes mellitus with diabetic chronic kidney disease; Z68.34 Body mass index [BMI] 34.0-34.9, adult; F32.A Depression, unspecified; I25.10 Atherosclerotic heart disease of native coronary artery without angina pectoris; E78.5 Hyperlipidemia, unspecified; Z88.2 Allergy status to sulfonamides; Z90.710 Acquired absence of both cervix and uterus; Z83.3 Family history of diabetes mellitus; Z82.49 Family history of ischemic heart disease and other diseases of the circulatory system; Z79.84 Long term (current) use of oral hypoglycemic drugs; Z79.4 Long term (current) use of insulin
CPT/HCPCS: 36415; 71045; 80048; 80061; 80307; 81001; 82962; 83036; 83735; 83880; 84439; 84443; 84481; 84484; 85025; 85379; 85610; 85652; 85730; 86141; 86803; 87340; 93005; 93306; G0378; J1815